=== PATIENT | male | born 1945 | race Caucasian/White ===

== ENCOUNTER → 2019-09-28 15:52 | Outpatient (CLI) | payer MEDICARE, OTHER, SELFPAY ==
[2019-09-28 17:19] LABS: Add Manual Diff / Slide Review NO; Basophils Absolute Auto 0 /uL (0-100); Basophils Percent Auto 0.2 % (0-2); Eosinophils Absolute Auto 0 /uL (0-450); Eosinophils Percent Auto 0.4 % (2-4); Hematocrit 35.7 % (41-53); Lymphocytes Absolute Auto 1200 /uL (1100-4500); Lymphocytes Percent Auto 12.4 % (25-40); Mean Corpuscular HGB Conc 33.5 % (30-36); Mean Corpuscular Hemoglobin 29.4 PG (26-34); Mean Corpuscular Volume 87.6 fL (80-100); Monocytes Absolute Auto 700 /uL (0-900); Monocytes Percent Auto 6.9 % (3-14); Neutrophils Absolute Auto 7600 /uL (1500-7000); Neutrophils Percent Auto 80.1 % (50-75); Platelet Count 396 X10^3/uL (150-400); Red Blood Cell Count 4.07 X10^6/uL (4.5-5.9); Red Cell Distribution Width 13.3 % (11.6-14.8); White Blood Cell Count 9.5 X10^3/uL (4.5-11.0)
[2019-09-28 18:01] LABS: Alanine Aminotransferase 68 IU/L (<50); Albumin 4.1 g/dL (3.5-5.0); Albumin Globulin Ratio 1.1 (1.0-2.8); Aspartate Aminotransferase 53 IU/L (17-59); BUN Creatinine Ratio 21.2 (6-22); Bilirubin Total 0.4 mg/dL (0.2-1.3); Blood Urea Nitrogen 14 mg/dL (9-20); Calcium 9.1 mg/dL (8.4-10.2); Carbon Dioxide 32 mmol/L (22-32); Chloride 95 mmol/L (98-107); Estimated Glomerular Filt Rate > 60.0 mL/min (>60); Globulin 3.9 g/dL (1.7-4.1); Glucose 179 mg/dL (80-110); HEMOLYSIS < 15 (0-50); Potassium 4.6 mmol/L (3.4-5.1); Sodium 135 mmol/L (137-145)
[2019-09-28 18:09] LABS: Alkaline Phosphatase 1398 U/L (38-126)
[2019-09-30 16:36] LABS: Albumin 2.7 g/dL (2.9-4.4); Alpha-1-Globulin 0.7 g/dL (0.0-0.4); Alpha-2-Globulin 1.3 g/dL (0.4-1.0); Gamma Globulin 0.9 g/dL (0.4-1.8); Immunoglobulin A, Serum 155 mg/dL (61-437); Immunoglobulin G,Serum 830 mg/dL (700-1600); Immunoglobulin M, Serum 120 mg/dL (15-143); Protein, Total 6.7 g/dL (6.0-8.5)
== END ==
PROVIDERS: PCP Family Medicine; Referring Provider Internal Medicine Hematology & Oncology; Visit Provider Internal Medicine Hematology & Oncology
DX: C79.51 Secondary malignant neoplasm of bone (principal)
CPT/HCPCS: 36415; 80053; 82784; 84155; 84165; 85025; 86334

== ENCOUNTER → 2019-11-09 10:00 | Outpatient (CLI) | payer MEDICARE, OTHER, SELFPAY ==
--- NOTE | 2019-11-09 10:02 | DI.NM.S_ITS ---
PROCEDURE: NM BONE SCAN WHOLE BODY RADIOPHARMACEUTICAL: 21.9 mCi Tc-99m MDP IV. INDICATIONS: metastat cancer to bone TECHNIQUE: Delayed whole-body scintigrams were obtained approximately 3-4 hours after intravenous injection of radiotracer. Anterior and posterior views were acquired from vertex to feet. COMPARISON: Outside Facility, RG, MRI L-SPINE W/O CONTRAST, 09/21/2019, 15:29. Outside Facility, RG, MRI HIP UNILATERAL WO CONTRAST, 09/21/2019, 16:30. [facility], CT, CT CHEST ABD PEL WO CON, 09/28/2019, 16:40. FINDINGS: As was seen on prior MR scanning from 09/21/[address] scanning from 09/28/19 extensive osseous metastatic disease is present. There is heterogeneous increased uptake in the axial and appendicular skeleton, with isotope deposition greater on the left than the right at the femur. This pattern also was seen on prior MR scanning that included the hips bilaterally. The isotope uptake is prominent, to the degree that residual isotope for excretion through the urinary tract is not present. IMPRESSION: Extensive osseous metastatic disease, through the axial and appendicular skeleton, with asymmetric greater involvement over the left femur when compared to that on the right. As discussed, isotope uptake through the metastatic disease involvement is prominent to the degree that no residual isotope is excreted through the urinary tract. Dictated by: Epifanio Strange M.D. on 11/09/2019 at 15:59 Approved by: Epifanio Strange M.D. on 11/09/2019 at 16:02
== END ==
PROVIDERS: PCP Family Medicine; Referring Provider Family Medicine; Visit Provider Internal Medicine Hematology & Oncology
DX: C61 Malignant neoplasm of prostate (principal); C79.51 Secondary malignant neoplasm of bone
CPT/HCPCS: 78306; A9503

== ENCOUNTER → 2019-12-07 13:01 | Outpatient (CLI) | payer MEDICARE, OTHER, SELFPAY ==
[2019-12-07 13:51] LABS: Add Manual Diff / Slide Review NO; Basophils Absolute Auto 0 /uL (0-100); Basophils Percent Auto 0.4 % (0-2); Eosinophils Absolute Auto 0 /uL (0-450); Hematocrit 36.2 % (41-53); Hemoglobin 12.2 g/dL (13.5-17.5); Lymphocytes Absolute Auto 600 /uL (1100-4500); Lymphocytes Percent Auto 8.1 % (25-40); Mean Corpuscular HGB Conc 33.6 % (30-36); Mean Corpuscular Volume 89.3 fL (80-100); Monocytes Absolute Auto 300 /uL (0-900); Monocytes Percent Auto 4.3 % (3-14); Neutrophils Absolute Auto 6500 /uL (1500-7000); Neutrophils Percent Auto 87.2 % (50-75); Platelet Count 228 X10^3/uL (150-400); Red Blood Cell Count 4.05 X10^6/uL (4.5-5.9); Red Cell Distribution Width 20.6 % (11.6-14.8); White Blood Cell Count 7.5 X10^3/uL (4.5-11.0)
[2019-12-07 14:07] LABS: Anisocytosis 2+
[2019-12-07 14:10] LABS: Alanine Aminotransferase 39 IU/L (<50); Albumin 4.4 g/dL (3.5-5.0); Albumin Globulin Ratio 1.6 (1.0-2.8); Alkaline Phosphatase 1165 U/L (38-126); Aspartate Aminotransferase 29 IU/L (17-59); BUN Creatinine Ratio 37.3 (6-22); Bilirubin Total 0.3 mg/dL (0.2-1.3); Blood Urea Nitrogen 22 mg/dL (9-20); Calcium 8.7 mg/dL (8.4-10.2); Carbon Dioxide 26 mmol/L (22-32); Chloride 104 mmol/L (98-107); Estimated Glomerular Filt Rate > 60.0 mL/min (>60); Globulin 2.8 g/dL (1.7-4.1); Glucose 108 mg/dL (80-110); HEMOLYSIS < 15 (0-50); Potassium 4.1 mmol/L (3.4-5.1); Sodium 137 mmol/L (137-145); Total Protein 7.2 g/dL (6.3-8.2)
[2019-12-07 14:40] LABS: Prostate Specific Antigen 3.71 ng/mL (0.10-4.00)
[2019-12-07 14:44] LABS: Testosterone < 4.90 ng/dL (71.8-623)
[2019-12-07 14:47] LABS: Erythrocyte Sedimentation Rate 18 MM/HR (0-15)
[2019-12-07 15:54] LABS: High Sensitivity CRP - Cardiac 0.5 mg/L (1.0-3.0)
[2019-12-07 16:05] LABS: Vitamin D 25 Hydroxy (D3) 58.3 ng/mL (30.0-100.0)
[2019-12-08 08:11] LABS: Ceruloplasmin 21.2 mg/dL (16.0-31.0)
[2019-12-08 19:19] LABS: Zinc 62 ug/dL (56-134)
== END ==
PROVIDERS: PCP Family Medicine; Visit Provider Internal Medicine Hematology & Oncology
DX: C61 Malignant neoplasm of prostate (principal); C79.51 Secondary malignant neoplasm of bone
CPT/HCPCS: 36415; 80053; 82306; 82390; 82525; 84153; 84403; 84630; 85025; 85651; 86140

== ENCOUNTER → 2020-01-18 15:54 | Outpatient (CLI) | payer MEDICARE, OTHER, SELFPAY ==
[2020-01-18 17:07] LABS: Add Manual Diff / Slide Review NO; Basophils Absolute Auto 0 /uL (0-100); Basophils Percent Auto 0.2 % (0-2); Eosinophils Absolute Auto 0 /uL (0-450); Eosinophils Percent Auto 0.1 % (2-4); Hematocrit 39.8 % (41-53); Hemoglobin 13.2 g/dL (13.5-17.5); Lymphocytes Absolute Auto 1700 /uL (1100-4500); Lymphocytes Percent Auto 16.9 % (25-40); Mean Corpuscular HGB Conc 33.3 % (30-36); Mean Corpuscular Hemoglobin 29.3 PG (26-34); Mean Corpuscular Volume 87.9 fL (80-100); Monocytes Absolute Auto 600 /uL (0-900); Monocytes Percent Auto 5.8 % (3-14); Neutrophils Absolute Auto 7900 /uL (1500-7000); Platelet Count 228 X10^3/uL (150-400); Red Blood Cell Count 4.52 X10^6/uL (4.5-5.9); Red Cell Distribution Width 17.6 % (11.6-14.8); White Blood Cell Count 10.3 X10^3/uL (4.5-11.0)
[2020-01-18 19:45] LABS: Alanine Aminotransferase 32 IU/L (<50); Albumin 4.2 g/dL (3.5-5.0); Albumin Globulin Ratio 1.8 (1.0-2.8); Alkaline Phosphatase 250 U/L (38-126); Aspartate Aminotransferase 22 IU/L (17-59); BUN Creatinine Ratio 28.8 (6-22); Bilirubin Total 0.3 mg/dL (0.2-1.3); Blood Urea Nitrogen 19 mg/dL (9-20); Calcium 9.3 mg/dL (8.4-10.2); Carbon Dioxide 34 mmol/L (22-32); Chloride 98 mmol/L (98-107); Estimated Glomerular Filt Rate > 60.0 mL/min (>60); Globulin 2.3 g/dL (1.7-4.1); Glucose 118 mg/dL (80-110); HEMOLYSIS < 15 (0-50); Potassium 4.2 mmol/L (3.4-5.1); Sodium 138 mmol/L (137-145); Total Protein 6.5 g/dL (6.3-8.2)
[2020-01-18 20:13] LABS: Prostate Specific Antigen 6.67 ng/mL (0.10-4.00)
[2020-01-18 20:24] LABS: Testosterone < 4.90 ng/dL (71.8-623)
== END ==
PROVIDERS: PCP Family Medicine; Referring Provider Internal Medicine Hematology & Oncology; Visit Provider Internal Medicine Hematology & Oncology
DX: C61 Malignant neoplasm of prostate (principal); C79.51 Secondary malignant neoplasm of bone
CPT/HCPCS: 36415; 80053; 84153; 84403; 85025

== ENCOUNTER → 2020-04-04 08:20 | Outpatient (CLI) | payer MEDICARE, OTHER, SELFPAY ==
[2020-04-04 08:51] LABS: Add Manual Diff / Slide Review NO; Basophils Absolute Auto 0 /uL (0-100); Basophils Percent Auto 0.4 % (0-2); Eosinophils Absolute Auto 0 /uL (0-450); Eosinophils Percent Auto 0.2 % (2-4); Hematocrit 37.3 % (41-53); Hemoglobin 12.4 g/dL (13.5-17.5); Lymphocytes Absolute Auto 400 /uL (1100-4500); Mean Corpuscular HGB Conc 33.1 % (30-36); Mean Corpuscular Hemoglobin 28.3 PG (26-34); Mean Corpuscular Volume 85.4 fL (80-100); Monocytes Absolute Auto 400 /uL (0-900); Monocytes Percent Auto 4.7 % (3-14); Neutrophils Absolute Auto 6900 /uL (1500-7000); Neutrophils Percent Auto 89.7 % (50-75); Platelet Count 262 X10^3/uL (150-400); Red Blood Cell Count 4.37 X10^6/uL (4.5-5.9); Red Cell Distribution Width 16.7 % (11.6-14.8); White Blood Cell Count 7.7 X10^3/uL (4.5-11.0)
[2020-04-04 09:00] LABS: HEMOLYSIS < 15 (0-50)
[2020-04-04 09:06] LABS: Alanine Aminotransferase 34 IU/L (<50); Albumin 4.1 g/dL (3.5-5.0); Albumin Globulin Ratio 1.6 (1.0-2.8); Alkaline Phosphatase 764 U/L (38-126); Aspartate Aminotransferase 27 IU/L (17-59); BUN Creatinine Ratio 19.5 (6-22); Bilirubin Total 0.6 mg/dL (0.2-1.3); Blood Urea Nitrogen 15 mg/dL (9-20); Calcium 9.5 mg/dL (8.4-10.2); Carbon Dioxide 34 mmol/L (22-32); Chloride 101 mmol/L (98-107); Estimated Glomerular Filt Rate > 60.0 mL/min (>60); Globulin 2.6 g/dL (1.7-4.1); Glucose 156 mg/dL (80-110); Potassium 4.4 mmol/L (3.4-5.1); Sodium 140 mmol/L (137-145); Total Protein 6.7 g/dL (6.3-8.2)
[2020-04-04 09:09] LABS: Erythrocyte Sedimentation Rate 61 MM/HR (0-15)
[2020-04-04 09:39] LABS: Testosterone 24.9 ng/dL (71.8-623)
[2020-04-05 20:52] LABS: Zinc 68 ug/dL (56-134)
== END ==
PROVIDERS: PCP Family Medicine; Referring Provider Internal Medicine Hematology & Oncology; Visit Provider Naturopath
DX: C61 Malignant neoplasm of prostate (principal); C79.51 Secondary malignant neoplasm of bone
CPT/HCPCS: 36415; 80053; 82525; 84153; 84403; 84630; 85025; 85651

== ENCOUNTER → 2020-05-15 09:06 | Outpatient (CLI) | payer MEDICARE, OTHER, SELFPAY ==
--- NOTE | 2020-05-15 | DI.CT.S_ITS ---
PROCEDURE: CT CHEST ABD PEL WO CON INDICATIONS: Malignant neoplasm of prostate TECHNIQUE: After the administration of oral contrast, 5 mm thick sections acquired from the lung apices to the symphysis pubis. 5 mm thick coronal and sagittal reformats acquired, with additional 7 mm coronal MIP reformats through the lungs. For radiation dose reduction, the following was used: automated exposure control, adjustment of mA and/or kV according to patient size. COMPARISON: [place], [place], [place] BONE SCAN WHOLE BODY, 11/09/2019, 13:47. [place], [place], [place] BONE SCAN WHOLE BODY, 05/15/2020, 12:19. [facility], CT, CT CHEST ABD PEL WO CON, 09/28/2019, 16:40. FINDINGS: Image quality: Excellent. CHEST: Lungs and pleura: No acute pulmonary opacities. Bilateral subpleural scarring in right middle lobe, lingula, and lower lobes. No pleural effusions or pneumothorax. Central and peripheral airways are patent are normal in caliber. Mediastinum: Heart size is normal. No pericardial effusion. Severe coronary calcification. No mediastinal adenopathy by CT size criteria. Thoracic aorta and central pulmonary arteries are normal in size. Esophagus is normal in caliber. No hiatal hernia. Chest wall: No axillary or supraclavicular adenopathy by size criteria. Thyroid gland is normal. ABDOMEN: Solid organs: Liver is normal in size. Gallbladder is normal. Pancreas is normal in contours. Spleen is normal in size. No adrenal nodules. Both kidneys are normal in size, without hydronephrosis or nephrolithiasis. There is a 3.3 cm cyst in left kidney. Peritoneum and bowel: There is a large amount of stool in colon. Small and large bowel loops are normal in caliber and wall thickness. No free fluid or air. Nodes and vessels: No retroperitoneal or mesenteric adenopathy by size criteria. Aorta and inferior vena cava are normal in size. Moderate atherosclerosis. Miscellaneous: No ventral hernias. PELVIS: Genitourinary: The 1.1 cm left pelvic sidewall lymph node now measures 6 mm which is normal by size criteria. Bladder wall thickness is normal. Miscellaneous: No inguinal adenopathy. There is a fat containing right inguinal hernia. Bones: Extensive mixed blastic and lucent bone lesions consistent with widespread osseous metastasis. No vertebral body compression fractures. IMPRESSION: 1. Extensive mixed blastic and lytic bone lesions consistent with widespread osseous metastases. 2. Resolution of mildly enlarged left pelvic sidewall lymph node. 3. A large amount of stool in colon. 4. Small fat containing right inguinal hernia. Dictated by: Rama Marion M.D. on 05/15/2020 at 14:23 Approved by: Rama Marion M.D. on 05/15/2020 at 18:05
--- NOTE | 2020-05-15 09:12 | DI.NM.S_ITS ---
PROCEDURE: [place] BONE SCAN WHOLE BODY RADIOPHARMACEUTICAL: 21.1 mCi Tc-99m MDP IV. INDICATIONS: prostate cancer TECHNIQUE: Delayed whole-body scintigrams were obtained approximately 3-4 hours after intravenous injection of radiotracer. Anterior and posterior views were acquired from vertex to feet. COMPARISON: [place], [place], [place] BONE SCAN WHOLE BODY, 11/09/2019, 13:47. FINDINGS: There is diffuse skeletal tracer activity essentially involving all bony structures above the knees, with increased uptake involving mid humerus bilaterally. There is decreased uptake seen in both proximal femurs since the prior study. Multifocal calvarial tracer activity is again noted unchanged. Bilateral acetabular tracer activity is decreased since the prior study. Unchanged tracer activity involving the distal left femur. IMPRESSION: Widespread osseous metastatic disease, with more conspicuous or new bilateral mid humeral lesions. Improved appearance and decreased uptake at the bilateral proximal femur since the prior study. There is also decreased tracer uptake at the acetabuli bilaterally. Dictated by: Aaron Iqbal M.D. on 05/15/2020 at 14:28 Approved by: Aaron Iqbal M.D. on 05/15/2020 at 14:33
== END ==
PROVIDERS: PCP Family Medicine; Referring Provider Internal Medicine Hematology & Oncology; Visit Provider Internal Medicine Hematology & Oncology
DX: C61 Malignant neoplasm of prostate (principal); C79.51 Secondary malignant neoplasm of bone; K40.90 Unilateral inguinal hernia, without obstruction or gangrene, not specified as recurrent
CPT/HCPCS: 71250; 74176; 78306; A9503

== ENCOUNTER → 2020-07-25 11:52 | Outpatient (CLI) | payer MEDICARE, OTHER, SELFPAY ==
[2020-07-25 12:26] LABS: Hematocrit 28.4 % (41-53); Mean Corpuscular HGB Conc 32.2 % (30-36); Mean Corpuscular Hemoglobin 27.1 PG (26-34)
[2020-07-25 12:30] LABS: Hemoglobin 9.1 g/dL (13.5-17.5); Mean Corpuscular Volume 84.3 fL (80-100); Platelet Count 143 X10^3/uL (150-400); Red Blood Cell Count 3.36 X10^6/uL (4.5-5.9); White Blood Cell Count 8.7 X10^3/uL (4.5-11.0)
[2020-07-25 12:31] LABS: Add Manual Diff / Slide Review YES
[2020-07-25 12:36] LABS: Alanine Aminotransferase 23 IU/L (<50); Albumin 3.9 g/dL (3.5-5.0); Albumin Globulin Ratio 1.4 (1.0-2.8); Alkaline Phosphatase 724 U/L (38-126); Aspartate Aminotransferase 31 IU/L (17-59); BUN Creatinine Ratio 34.7 (6-22); Bilirubin Total 0.2 mg/dL (0.2-1.3); Blood Urea Nitrogen 17 mg/dL (9-20); Calcium 8.5 mg/dL (8.4-10.2); Carbon Dioxide 32 mmol/L (22-32); Chloride 101 mmol/L (98-107); Estimated Glomerular Filt Rate > 60.0 mL/min (>60); Globulin 2.8 g/dL (1.7-4.1); Glucose 157 mg/dL (80-110); HEMOLYSIS < 15 (0-50); Potassium 4.4 mmol/L (3.4-5.1); Sodium 135 mmol/L (137-145); Total Protein 6.7 g/dL (6.3-8.2)
[2020-07-25 13:12] LABS: Testosterone 5.93 ng/dL (71.8-623)
[2020-07-25 13:17] LABS: Neutrophils Absolute Manual 6438 /uL (3000-5900); Nucleated Red Blood Cells 3 #/Diff; Total Cells Counted 100
[2020-07-25 13:18] LABS: Anisocytosis 3+; Polychromasia 2+
[2020-07-25 13:52] LABS: Prostate Specific Antigen 721 ng/mL (0.10-4.00)
== END ==
PROVIDERS: PCP Family Medicine; Referring Provider Internal Medicine Hematology & Oncology; Visit Provider Internal Medicine Hematology & Oncology
DX: C61 Malignant neoplasm of prostate (principal); C79.51 Secondary malignant neoplasm of bone
CPT/HCPCS: 36415; 80053; 84153; 84403; 85007; 85025

== ENCOUNTER → 2020-08-03 09:20 | Oncology outpatient (ONC) | payer MEDICARE, OTHER, SELFPAY ==
--- NOTE | 2019-09-28 14:28 | ONC.CONS ---
History of Present Illness - Data of Consult Patient: new to practice Consult date: 09/28/19 Requesting Physician: Domenico Roldan MD Primary Care Provider: oDmenico Roldan MD - Consult Narrative Reason for consult: Metastatic Cancer to Bone from Unknown primary Narrative: Seng Becker is a 74 year old male. He was referred by Dr. Domenico Roldan for evaluation of metastatic cancer to the bone from unknown primary. Seng used to be a very active male. He was in [place] June of 2019 when he developed left hip pain. Initially he thought he could overcome by more exercise. He went for physical therapy. However the left hip pain has gotten progressively worse especially in ?wrong position?. The pain can be as severe as 9/10 in severity when it is in a round position. In addition patient has noticed significant muscle wasting of the lower extremities especially the left side compared to the right side. And he gradually was having problems ambulating and had to use crutches all the time. Patient has lost about 18 lb since then. While in [place], patient had a MRI of the lumbar spine and the pelvis on 09/21/2019. The MRI showed diffusely heterogeneous marrow suspicious for diffuse [place] metastatic disease. Other possibilities would include multiple myeloma or myeloproliferative disorders. He presented with some lower back and left sided hip pain. The problem started while he was in [place]. Because of the pain he was debilitated and had to use crutches. He flew back to [facility] and then on September [address] Domenico Roldan who referred the patient to our [facility] for further evaluation. Dr. Domenico Roldan prescribed hydrocodone 5/325 every 4 hours on as-needed basis for pain control. He had headache about one month ago, not recently. He had 'involuntary movement of both arms for twice. He reports no shortness of breath, no cough. He said that his voice has become more raspy. He had mild fever at home, about 101.2. H had cold sweats. He reports no abdominal pain. He reports no nausea and no vomiting. He has left sided flank pain, that comes and goes. Patient reports pain?: Yes Home Medications and Allergies Home Medications Medication Instructions Recorded Confirmed Type Prevnar 13 (PF) 0.5 ml IM X1 #1 ea 12/26/16 09/28/19 Rx Zostavax (PF) 0.5 ml SQ STAT #1 ml 12/26/16 09/28/19 Rx Cannibus 09/28/19 History celecoxib 200 mg PO PRN PRN 09/28/19 09/28/19 History hydrocodone-acetaminophen 1 tab PRN PRN 09/28/19 09/28/19 History polyethylene glycol 3350 [Miralax] 17 g PO DAILY PRN 09/28/19 09/28/19 History Allergies Allergy/AdvReac Type Severity Reaction Status Date / Time Penicillins [PENICILLINS] Allergy Severe ANAPHYLAXIS Unverified 10/29/17 13:08 CONTRAST DYE Allergy Severe HYPOTENSION Uncoded 10/29/17 13:08 Medical History - Medical, Surgical, Family History Medical History: Medical History (Last Updated 09/28/19 @ 15:02 by Lucian Perez MD) Basal cell carcinoma of skin Bradycardia Hyperlipidemia Melanoma Onset Date: ~2011 TIA (transient ischemic attack) Surgical History: Surgical History (Last Updated 09/28/19 @ 15:02 by Lucian Perez MD) History of Achilles tendon repair History of basal cell carcinoma (BCC) excision History of melanoma excision Family History: Family History (Last Updated 09/28/19 @ 15:02 by Lucian Perez MD) Mother Breast cancer Son Melanoma Grandmother Melanoma Daughter Monoallelic mutation of ZEFERINO gene - Social History Smoking Status: Never smoker Substance Use Type: does not use Alcohol Intake: former (social) Review of Systems All systems PM: reviewed and no additional remarkable complaints except as stated Constitutional: normal sleep Exam Vital signs: Last Vital Signs Temp 98.2 F 09/28/19 14:36 Pulse 66 09/28/19 14:36 Resp 18 09/28/19 14:36 BP 148/98 H 09/28/19 14:36 Pulse Ox 98 09/28/19 14:36 Narrative: ECOG 2 Gen: WD, thin, NAD, pleasant and cooperative. In wheelchair. HEENT: NCAT, EOMI, PERRLA, anicteric sclera. Neck: Supple, No palpable thyromegaly or lymphadenopathy. Respiratory: CTAB, no wheezes audible. No JVD Cardiovascular: RRR, S1 and S2 normal, SM 2/6 aortic valve Abdomen: Soft, NTND, BS normal, no palpable organomegaly Musculoskeletal: Tenderness elicited from the right scapular, left scapular, left lower rib, left greater trochanter. Extremities: No LE pitting edema. Bilateral lower extremity muscle wasting noted especially on the left side. Lymphatic: no palpable lymph nodes in the neck, axillae, or groins. Neurological: AOx3, CN II-XII grossly intact. No focal motor or sensory deficit. Psychiatric: Normal affect, appropriate mood, no depression, no anxiety. 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 Assessment: Today, I explained to the patient, his and daughter that based on the clinical presentation, my physical examination and the limited MR without contrast, patient has extensive metastatic bone disease. The primary tumor is unclear at this moment. There are several possibilities including primary bone malignancy, multiple myeloma, or primary malignancy from other organ systems, for example gastrointestinal systems, or genitourinary systems. Patient's daughter was diagnosed with ZEFERINO germ line mutation while the mother was tested negative. Seng could be positive for ZEFERINO germ line mutation that would predispose him to higher risk of malignancy. I talked with him that I will obtain basic laboratory tests first to evaluate. I will also obtain bone scan as well as CTs chest abdomen pelvis. Hopefully the scan will provide information about the best location to proceed with biopsy. Patient and patient's family including his and his daughter voiced understanding. Plan: CBC, CMP, SPEP, IFIX Bone scan CT CAP w/contrast RTC in 2 days.
[2019-09-28 14:36] VITALS: BP 148/98; PULSE 66; RESP 18; TEMP 36.8; O2SAT 98
--- NOTE | 2019-09-28 15:56 | DI.CT.S_ITS ---
PROCEDURE: CT CHEST ABD PEL WO CON INDICATIONS: metastatic cancer to bone TECHNIQUE: After the administration of oral contrast, 5 mm thick sections acquired from the lung apices to the symphysis pubis. 5 mm thick coronal and sagittal reformats acquired, with additional 7 mm coronal MIP reformats through the lungs. For radiation dose reduction, the following was used: automated exposure control, adjustment of mA and/or kV according to patient size. COMPARISON: None. FINDINGS: Image quality: Excellent. CHEST: Lungs and pleura: There are patchy right basilar opacities favored to represent atelectasis. Otherwise no acute pulmonary opacities. No pleural effusions or pneumothorax. Central and peripheral airways are patent are normal in caliber. Mediastinum: Heart size is normal. Scattered atherosclerotic calcifications of the coronary arteries are noted. No pericardial effusion. No mediastinal adenopathy by CT size criteria. Thoracic aorta and central pulmonary arteries are normal in size. Esophagus is normal in caliber. No hiatal hernia. Chest wall: No axillary or supraclavicular adenopathy by size criteria. Thyroid gland is unremarkable. ABDOMEN: Solid organs: Liver is normal in size. Gallbladder is unremarkable in noncontrast appearance. Pancreas is normal in contours. Spleen is normal in size. No adrenal nodules. Both kidneys are normal in size, without hydronephrosis or nephrolithiasis. There is a 3.5 cm partially exophytic left renal cyst. Peritoneum and bowel: Small and large bowel loops are normal in caliber and wall thickness. Normal appendix. No free fluid or air. Nodes and vessels: No retroperitoneal or mesenteric adenopathy by size criteria. Scattered atherosclerotic calcifications of the abdominal aorta and iliac vessels without aneurysmal dilatation. Miscellaneous: No ventral hernias. PELVIS: Genitourinary: Bladder wall thickness is normal. Prominent prostate gland. Miscellaneous: Small fat-containing right inguinal hernia without acute inflammation. There is a prominent left pelvic sidewall lymph node measuring 1.1 cm in short axis dimension. Bones: Innumerable, diffusely scattered sclerotic intraosseous lesions seen throughout the entire visualized axial and appendicular skeleton. No acute vertebral body compression fractures. IMPRESSION: 1. Diffuse, heterogeneous sclerotic intraosseous lesions seen throughout the visualized skeleton compatible with osseous metastases. No acute compression fractures. No evidence for pathologic fractures. 2. Prominent left pelvic sidewall lymph node measuring approximately 1.1 cm in short axis dimension. 3. CT chest, abdomen and pelvis without acute abnormalities. 4. Patchy right basilar opacities favored to represent atelectasis. Dictated by: Rigoberto Byrd M.D. on 09/28/2019 at 17:08 Approved by: Rigoberto Byrd M.D. on 09/28/2019 at 17:23
--- NOTE | 2019-09-29 11:03 | PC.NURSE ---
Spoke with pt's , Brant, earlier this morning. Per Brant, pt is in terrible pain. Pain is so significant pt can't get up off the floor. Brant explains with any type of movement, he just yells out in pain. Brant reports mashing up 2 Hydrocodones in yogurt and administering them to the pt around 5:45 AM. Pt was able to sleep for a few hours, but then woke up with increased pain. Brant reports pt's pain is in his spine, hips,neck and shoulders. She further states he isn't able to take deep breaths because even that causes him significant pain. This data analyst report writer discussed possible pain regimen options with Brant. Discussed medications Morphine, Dilaudid, and Fentanyl; risks and benefits covered. Brant further discussed concerns r/t pt scheduled PET scan there is no way he will be able to tolerate it if it's anything like the CT scan yesterday. Explained PET scan appt details; approx length of time it would take, the position the pt would be in, etc..This data analyst report writer discussed quality if life goals with Brant. According to Brant, He just wants to be comfortable right now. If there was an oral pill he could take that would help his cancer, then we would consider something like that. Verbalized to Brant that this data analyst report writer would reach out to Dr. Perez and inform him of the sudden change in pt's pain intensity since yesterday and overall condition and would call her back to discuss Dr. Perez's instructions. Per Dr. Perez pain control is the priority at this time. and pt should be evaluated in the ER. Called Brant back and informed her of Dr. Perez's recommendations. Brant then explained that since our initial conversation she had made an appt with [facility] and someone would be out at 1pm today to address pt's pain and other concerns. Brant states if his pain isn't better in 24 hours then we will take him to the ER. Brant explains she would like to see how the Hospice appt at 1:00 goes first. Brant expressed her gratitude everyone at the [facility] has been so great, thank you. This data analyst report writer instructed her to call if they needed anything else at all, she agreed.
--- NOTE | 2019-09-29 11:08 | ONC.MSW ---
Description: T/C/Care Coordination Activity: Pt's had emailed this PACKAGE HANDLER inquiring about the status of the bed delivery, stating that pt is on the floor, we can't get him up, in extreme pain. PACKAGE HANDLER notified our triage nurse in order to f/u re: pain and bowel concerns. PACKAGE HANDLER called [facility] to clarify the status of the bed order, was informed that the family had just called, were angry because they couldn't get the bed today, and that pt was being admitted to hospice today. PACKAGE HANDLER called [facility], who is indeed scheduled to admit him today. PACKAGE HANDLER faxed his clinicals as requested, notified online editor that pt is being admitted to hospice.
--- NOTE | 2019-09-30 10:05 | ONC.MSW ---
Description: T/C re: goals of care, decision-making Activity: Called pt's after receiving an email from her requesting that Dr. Perez call the family and go over the CT scan, as well as give them a definitive diagnosis, even though they are now on hospice. Dr. Perez declined the request to call them, and felt that pt's decision to go on hospice was premature, and that he felt this cancer may be highly treatable, if it turns out to be metastatic prostate cancer. He requested this FUEL HANDLER explain this to family, and that he would also provide pain management. Pt's states that pt's pain has improved today, that hospice started him on Methadone, and that they were told that pt can go on and off hospice as many times as he wants, if he wants to pursue oncologic treatment as he improves. She was not happy that they couldn't have the CT gone over by phone, and did not feel confident with the hospice nurse going over it. FUEL HANDLER explained that Dr. Perez would be more than willing to work with them, but they would need to go off of hospice and make an appt. to come in to see him. Family will remain on hospice for the time being. FUEL HANDLER offered support and wished them well.
--- NOTE | 2019-10-07 16:49 | PC.NURSE ---
TELECONFERENCE REQUEST RE BIOPSY RESULTS WITH EXPLANATION, PROGNOSIS AND ANY TREATMENT POSSIBILITIES WAS MADE BY PATIENT'S . SHE WAS TOLD BY HOSPICE THAT THEY WOULD APPROVE SUCH A VISIT. STATES THAT SHE WOULD ALSO PAY OUT OF POCKET IF IT IS NOT COVERED. DR HUMAIRA GUIDRY OF HOSPICE (CELL: [phone]) ALSO LEFT A MESSAGE WITH A REQUEST FOR A TELECONFERENCE WITH SHE AND PATIENT AND . IF THIS WOULD NOT BE POSSIBLE SHE REQUESTS THAT YOU GIVE HER A CALL TO EXPLAIN THE RESULTS SO THAT SHE CAN RELAY THIS TO THE PATIENT AND FAMILY.
--- NOTE | 2019-10-11 10:24 | ONC.MSW ---
T/C re: visit w/Dr. Perez today PUBLIC POLICY ANALYST attempted to call both the home phone and cell phone, left message on 's cell phone to please call PUBLIC POLICY ANALYST re: pt's scheduled visit with Dr. Perez. He will be unable to provide a teleconference at this time.
--- NOTE | 2019-10-11 15:55 | ONC.MSW ---
T/C re: Dr. Perez Consult Visit Activity: Spoke with pt's , Brant. She had left a message earlier that she would like for Dr. Perez to call and work with an integrative oncologist down in [place] re: working together on a treatment plan for pt. Pt is still on Hospice services. TOUR DRIVER explained to Brant that at this time, Dr. Perez is unable to provide for teleconferencing for medical appointments or consultations, and that he would only be willing to work together with Dr. Oglesby in [place] if Seng revoked Hospice and decided to pursue active oncology treatment. Brant insists that [place] travel[place], and that they need a call. TOUR DRIVER again reiterated that Dr. Perez does not practice that way, however this TOUR DRIVER has left a message for the financial services director, Dr. Davis, re: the possibility that she and Dr. Perez can talk again over the phone re: the results of his PSA. Will plan to call Brant again in a few days after Dr. Perez and Dr. Gonzalez talk.
--- NOTE | 2019-10-14 11:26 | ONC.MSW ---
Description: T/C-New Referral Navigation Activity: Recieved message from pt's stating that they are choosing to go off of hospice and restart oncology active treatment. They met with their primary care doctor, Dr. Roldan, who went over the PSA results with them (204), which appears to be indicative of metastatic prostate cancer. They wish to be scheduled as soon as possible. HR SYSTEMS ANALYST called and left a message with Dr. Roldan's clinic, requesting the urgent referral and PSA lab results. Will plan to schedule pt once we have these.
--- NOTE | 2019-10-19 09:46 | P.PNONC_ITS ---
PN -Subjective Interval history: ID/CC: 74-year-old gentleman advanced prostate cancer with extensive bone metastasis. HPI: Seng Becker is a 74 year old male. He was referred by Dr. Domenico Roldan for evaluation of metastatic cancer to the bone of unknown primary. Seng used to be a very active man. He was in [place] in June of 2019 when he developed left hip pain. Initially he thought he could overcome by more exercise. He went for physical therapy. However the left hip pain has gotten progressively worse especially in ?wrong position?. The pain can be as severe as 9/10 in severity when it is in the wrong position. In addition patient has noticed significant muscle wasting of the lower extremities especially the left side compared to the right side. He gradually was having problems ambulating and had to use crutches all the time. Patient has lost about 18 lb since then. While in [place], patient had a MRI of the lumbar spine and the pelvis on 09/21/2019. The MRI showed diffusely heterogeneous marrow suspicious for diffuse osseous metastatic disease. Other possibilities would include multiple myeloma or myeloproliferative disorders. He flew back to [facility] and on September 23, [address] Domenico Roldan who referred the patient to our [facility] for further evaluation. Dr. Domenico Roldan prescribed hydrocodone 5/325 every 4 hours on as-needed basis for pain control. He had headache about in 08/2019. He had 'involuntary movement of both arms for twice. He reports no shortness of breath, no cough. He said that his voice has become more raspy. He had mild fever at home, about 101.2. H had cold sweats. He reports no abdominal pain. He reports no nausea and no vomiting. He has left sided flank pain, that comes and goes. Interval History: Since his previous visit, on 09/28/2019, patient underwent CT chest abdomen and pelvis. The scan showed diffuse, heterogeneous sclerotic intra-osseous lesions throughout the visualized skeleton compatible with osseous metastasis. No acute compression fractures were noted. No evidence of pathological fractures. It also showed prominent left pelvic side wall lymph node measuring approximately 1.1 cm in short axis dimension. On 09/29/2019, he developed extreme pain and had to lie down on mattress on floor and was not able to get up. He chose no further investigation or treatment. He then decided to get into hospice care ([facility] For pain control, he was started on methadone. After CT scan of 19/05/2020 became available, I called and discussed with Kelley Rubin about check serum PSA level. On 10/11/2019, patient underwent laboratory test that showed PSA 203.97 ng/ml. On 10/12/2019, patient was evaluated by Dr. Roldan for pain management. Patient has chose to revoke hospice care. Currently patient is taking methadone every 12 hours, hydrocodone for breakthrough pain together with dexamethasone. Patient said that this regimen works well for the pain. Patient also was evaluated by [facility]. They have received lots of information as far as prostate cancer treatment is concerned. They presented here today the patient and his for discussion of the diagnosis and further management options. - Additional ROS All systems PM: reviewed and no additional remarkable complaints except as stated (Those mentioned in HPI and Interval History) Home Medications and Allergies Home Medications Medication Instructions Recorded Confirmed Type Prevnar 13 (PF) 0.5 ml IM X1 #1 ea 12/26/16 09/28/19 Rx Zostavax (PF) 0.5 ml SQ STAT #1 ml 12/26/16 09/28/19 Rx Cannibus 09/28/19 History hydrocodone-acetaminophen 1 tab PRN PRN 09/28/19 09/28/19 History polyethylene glycol 3350 [Miralax] 17 g PO DAILY PRN 09/28/19 09/28/19 History ascorbic acid (vitamin C) [Vitamin 7,000 mg PO DAILY 10/19/19 10/19/19 History C] bicalutamide [Casodex] 50 mg PO DAILY #30 tab 10/19/19 Rx dexamethasone 4 mg PO DAILY 10/19/19 10/19/19 History magnesium oxide 400 mg PO DAILY 10/19/19 10/19/19 History methadone 5 mg PO Q6H 10/19/19 10/19/19 History Allergies Allergy/AdvReac Type Severity Reaction Status Date / Time Penicillins [PENICILLINS] Allergy Severe ANAPHYLAXIS Unverified 10/29/17 13:08 CONTRAST DYE Allergy Severe HYPOTENSION Uncoded 10/29/17 13:08 Exam Vital signs: 10/19/19 10:55 Last Vital Signs Temp 99.0 F 10/19/19 10:21 Pulse 74 10/19/19 10:21 Resp 16 10/19/19 10:21 BP 151/107 H 10/19/19 10:21 Pulse Ox 96 10/19/19 10:21 Narrative: ECOG 1 Gen: WD, thin, NAD, pleasant and cooperative. Not in wheelchair. He is using walker today. HEENT: NCAT, EOMI, PERRLA, anicteric sclera. Neck: Supple, No palpable thyromegaly or lymphadenopathy. Respiratory: CTAB, no wheezes audible. No JVD Cardiovascular: RRR, S1 and S2 normal, SM 2/6 aortic valve Abdomen: Soft, NTND, BS normal, no palpable organomegaly Musculoskeletal: Tenderness elicited from the right scapular, left scapular, left lower rib, left greater trochanter. Extremities: No LE pitting edema. Bilateral lower extremity muscle wasting noted especially on the left side. Lymphatic: no palpable lymph nodes in the neck, axillae, or groins. Neurological: AOx3, CN II-XII grossly intact. No focal motor or sensory deficit. Psychiatric: Normal affect, appropriate mood, no depression, no anxiety. Results - Labs Reviewed. The PSA was 203.97. Assessment and Plan (1) Metastatic cancer to bone Overview: Seng is a 74 year old male with newly diagnosed advanced prostate cancer with extensive bone metastasis on 10/12/2019. He initially presented with rapidly progressive worsening whole body bone pain, weight loss and lower extremity muscle waiting in Jun 2019. CT CAP scan on 09/28/2019 showed extensive sclerotic bone lesio affecting all bones visible, as well as one left pelvic lymph node. PSA on 10/11/2019 was found to be 203.97 ng/ml. 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 Assessment: I explained to the patient that with some the significant elevated serum PSA level and the CT scan results of sclerotic multiple bone lesions, I think we can make the diagnosis of prostate cancer without resorting to biopsy. Talked with him and his in the presence of our social studies department chair Nimisha about the options for newly diagnosed metastatic prostate adenocarcinoma. First of I talked with them that the main treatment is androgen deprivation therapy. We usually use LHRH agonist Lupron to achieve androgen deprivation. The Lupron usually is given once every 3 months. To prevent the known PSA flare with initial use of Lupron, usually will prescribe casodex 50 mg once a day for the initial 1 month. Next I talked with them that I would recommend chemotherapy with docetaxel. I emphasized that it is a limited course of treatment for 6 cycles. And the clinical trial has shown overall survival compared to patients who has not had chemotherapy (HR 0.72, mOS 57.6 vs 47.2). Third, I talked with the patient that given the extensive bone metastasis, I also will recommend medications with denosumab injection once a month. However, currently COVID-19 pandemic is expected to peak within the next couple of week. Non essential surgery has been postponed. I am afraid that for chemotherapy, he may not be able to get the port placement. In addition chemotherapy requires frequent clinic and or hospital visits, that increases the risk of exposure to COVID-19. Because of this current situation, I recommend that we first start androgen deprivation therapy with Lupron. When the COVID-19 subsides, we will initiate treatment with docetaxel. As far as bone medication denosumab is concerned, I talked with them that it is associated with a rare complications of osteonecrosis of the jaw. Therefore, dental clearance is usually required. At present, due to COVID-19 pandemic, all the dental office has been closed. Therefore, I would recommend that we also delay the initiation of denosumab for now. Patient and patient's both voiced understanding. Plan: Casodex 50 mg daily x 30#, start today Lupron 22.5 mg im every 12 week, starting in one week RTC in 2 months, CBC, CMP, PSA, T (2) Pain due to malignant neoplasm metastatic to bone Overview: Patient has had extreme whole-body bone pain due to metastatic prostate cancer. Assessment: Patient currently is using methadone, hydrocodone, and dexamethasone for the pain control. He has been managed by Samantha Huerta Plan: Continue follow up with Samantha Huerta
[2019-10-19 10:21] VITALS: BP 151/107; PULSE 74; RESP 16; TEMP 37.2; O2SAT 96
--- NOTE | 2019-10-19 10:57 | ONC.MSW ---
Description: New Pt F/F Visit- joint visit with Dr. Perez. Activity: Met with pt and spouse, as well as Dr. Perez for re-establishment of Oncology active treatment/care. Pt is choosing to revoke hospice services at this time, his PSA labs showed his PSA at 203, which was a diagnostic indicator for metastatic prostate cancer. Dr. Perez explained to pt/ that pt literally has bone mets in every bone in his body from the neck down, however no mets to other organs at this time. Pt shared that he's feeling significantly better since being on hospice and beginning the methadone/dexamethasone pain regimen. They [place] will plan to continue pt's pain management needs. Plan is for pt to begin lupron and casodex, followed by starting docetaxel in approx. 6-weeks. Dr. Perez is choosing to postpone the docetaxel at this time due to the Covid-19 outbreak, and pt's travel requires ferry travel to the hospital-something we and the family want to avoid as long as possible. No further psychosocial needs are identified at this time. Plan: Will continue to monitor ongoing assistance and support needs.
--- NOTE | 2019-10-19 11:02 | ONC.SCHED ---
Patsy [id number]: codecorrect nati w/ DX C61.
[2019-10-26 13:16] VITALS: BP 152/80; PULSE 79; RESP 18; TEMP 36.7; O2SAT 96
[2019-10-26] MEDS: LEUPROLIDE DEPOT [ELIGARD] 22.5 MG SYR SUBCUT (13:44)
--- NOTE | 2019-10-26 13:59 | PC.NURSE ---
Pt was given written information r/t silvia as well as teaching on when to seek emergent medical care. Pt and verbalized understanding.
--- NOTE | 2019-11-02 14:57 | PC.NURSE ---
SIDE EFFECTS OF LUPRON ON THIS PATIENT WERE WRITTEN IN AN EMAIL ADDRESSED TO RETAIL CUSTOMER SERVICE REPRESENTATIVE BY HIS . [facility] EXPERIENCING: UNUSUAL HOARSENESS, TROUBLE SWALLOWING OCCASIONALLY, INCREASED THIRST AND APPETITE, INCREASED FREQUENCY OF URINATION, DRY MOUTH, WORSE BONE AND BACK PAIN, SHAKING HANDS AND RESTLESSNESS, EMOTIONAL UPS AND DOWNS. THIS NURSE CALLED PATIENT WHO STATED HE WAS DOING GOOD. HE STATED THAT THE HOARSENESS HAS BEEN PRESENT EVEN BEFORE LUPRON AND THAT HE IS NOT HAVING MUCH TROUBLE WITH SWALLOWING, NO CHOKING. HE WAS REASSURED THAT THE OTHER SYMPTOMS WERE KNOWN SIDE EFFECTS. HE IS LOOKING INTO GETTING [place] BONE DENSITY [place]AN [place] AND OTHERWISE WILL CALL BACK TO REQUEST. FU IS IN ONE MONTH.
--- NOTE | 2019-11-15 10:07 | ONC.MSW ---
Description: Bone Scan Results T/C Activity: Pt's called and requested that the bone scan results be faxed to osvaldo Huerta, as he will be meeting with pt/family later this afternoon to review treatment status and goals of continuing care. Faxed as requested.
--- NOTE | 2019-12-06 14:21 | ONC.MSW ---
Description: Lab Add-On's Activity: RETAIL EQUIPMENT ASSOCIATE took care of making sure that the labs being ordered by Dr. Yun, pt's Integr[facility], are scanned in by central registration for his lab draw tomorrow.
[2019-12-07 14:35] VITALS: BP 130/77; PULSE 70; RESP 18; TEMP 36.4; O2SAT 97
--- NOTE | 2019-12-07 14:36 | P.PNONC_ITS ---
PN -Subjective Interval history: ID/CC: 74-year-old gentleman advanced prostate cancer with extensive bone metastasis. HPI: Seng Becker is a 74 year old male. He was referred by Dr. Domenico Roldan for evaluation of metastatic cancer to the bone of unknown primary. Seng used to be a very active man. He was in [place] in June of 2019 when he developed left hip pain. Initially he thought he could overcome by more exercise. He went for physical therapy. However the left hip pain has gotten progressively worse especially in ?wrong position?. The pain can be as severe as 9/10 in severity when it is in the wrong position. In addition patient has noticed significant muscle wasting of the lower extremities especially the left side compared to the right side. He gradually was having problems ambulating and had to use crutches all the time. Patient has lost about 18 lb since then. While in [place], patient had a MRI of the lumbar spine and the pelvis on 09/21/2019. The MRI showed diffusely heterogeneous marrow suspicious for diffuse osseous metastatic disease. Other possibilities would include multiple myeloma or myeloproliferative disorders. He flew back to [facility] and on September 23, [address] Domenico Roldan who referred the patient to our [facility] for further evaluation. Dr. Domenico Roldan prescribed hydrocodone 5/325 every 4 hours on as-needed basis for pain control. On 09/28/2019, patient underwent CT chest abdomen and pelvis. The scan showed diffuse, heterogeneous sclerotic intra-osseous lesions throughout the visualized skeleton compatible with osseous metastasis. No acute compression fractures were noted. No evidence of pathological fractures. It also showed prominent left pelvic side wall lymph node measuring approximately 1.1 cm in short axis dimension. On 09/29/2019, he developed extreme pain and had to lie down on mattress on floor and was not able to get up. He chose no further investigation or treatment. He then decided to get into hospice care ([facility] For pain control, he was started on methadone. After CT scan of 19/05/2020 became available, I called and discussed with Kelley Rubin about check serum PSA level. On 10/11/2019, patient underwent laboratory test that showed PSA 203.97 ng/ml. On 10/12/2019, patient was evaluated by Dr. Roldan for pain management. Patient has chose to revoke hospice care. At the time, he was taking methadone every 12 hours, hydrocodone for breakthrough pain together with dexamethasone. Patient said that this regimen works well for the pain. Patient also was evaluated by [facility]. They have received lots of information as far as prostate cancer treatment is concerned. Interval History: During his previous visit with me, we discussed about the diagnosis of castration sensitive metastatic prostate adeno carcinoma. Patient has elevated PSA level with CT evidence extensive bone metastasis. He was started on Casodex 50 mg once a day for 30 days and on 10/26/2019 patient was started on Lupron injection 22.5 mg im. After the lupron, more tired. He is no where as good as before. He has pain flair up in the ankles, knees, hips, and shoulders. He is taking dexamethasone in the morning, and methadone every 6 hours. At the clinic, his pain was 1/10 as he is not walking. - Patient Self-Reported Symptoms SR Constitution: Weight loss/gain SR ears, nose, mouth, throat issues: Hoarseness SR Genitourinary issues: Frequent urination SR Musculoskeletal issues: Joint pain or swelling, Muscle weakness, Back or neck pain, Bone pain SR Neuro issues: Numbness or tingling SR Endocrine issues: Excessive thirst - Additional ROS All systems PM: reviewed and no additional remarkable complaints except as stated Home Medications and Allergies Home Medications Medication Instructions Recorded Confirmed Type Prevnar 13 (PF) 0.5 ml IM X1 #1 ea 12/26/16 12/07/19 Rx Zostavax (PF) 0.5 ml SQ STAT #1 ml 12/26/16 12/07/19 Rx Cannibus 09/28/19 History hydrocodone-acetaminophen 1 tab PRN PRN 09/28/19 12/07/19 History polyethylene glycol 3350 [Miralax] 17 g PO DAILY PRN 09/28/19 12/07/19 History ascorbic acid (vitamin C) [Vitamin 7,000 mg PO DAILY 10/19/19 12/07/19 History C] dexamethasone 4 mg PO DAILY 10/19/19 12/07/19 History magnesium oxide 400 mg PO DAILY 10/19/19 12/07/19 History methadone 5 mg PO Q6H 10/19/19 12/07/19 History Curapro 750 mg DAILY 12/07/19 12/07/19 History Vitamin D3 4,000 units DAILY 12/07/19 12/07/19 History calcium-vits X3-W-C2-minerals 2 tab PO BID 12/07/19 12/07/19 History [Bone Essentials] Allergies Allergy/AdvReac Type Severity Reaction Status Date / Time Penicillins [PENICILLINS] Allergy Severe ANAPHYLAXIS Unverified 10/29/17 13:08 CONTRAST DYE Allergy Severe HYPOTENSION Uncoded 10/29/17 13:08 Exam Vital signs: 12/07/19 23:24 Last Vital Signs Temp 97.5 F L 12/07/19 14:35 Pulse 70 12/07/19 14:35 Resp 18 12/07/19 14:35 BP 130/77 12/07/19 14:35 Pulse Ox 97 12/07/19 14:35 Narrative: ECOG 1 Gen: WD, thin, NAD, pleasant and cooperative. Not in wheelchair. He is using walker today. HEENT: NCAT, EOMI, PERRLA, anicteric sclera. Neck: Supple, No palpable thyromegaly or lymphadenopathy. Respiratory: CTAB, no wheezes audible. No JVD Cardiovascular: RRR, S1 and S2 normal, SM 2/6 aortic valve Abdomen: Soft, NTND, BS normal, no palpable organomegaly Musculoskeletal: Tenderness elicited from the right scapular, left scapular, left lower rib, left greater trochanter. Extremities: No LE pitting edema. Bilateral lower extremity muscle wasting noted especially on the left side. Lymphatic: no palpable lymph nodes in the neck, axillae, or groins. Neurological: AOx3, CN II-XII grossly intact. No focal motor or sensory deficit. Psychiatric: Normal affect, appropriate mood, no depression, no anxiety. Results - Labs Laboratory Last Values Prostate Specific Ag 3.71 ng/mL (0.10-4.00) 12/07/19 15:50 Assessment and Plan (1) Metastatic cancer to bone Overview: Seng is a 74 year old male with newly diagnosed advanced prostate cancer with extensive bone metastasis on 10/12/2019. He initially presented with rapidly progressive worsening whole body bone pain, weight loss and lower extremity muscle wasting in Jun 2019. CT CAP scan on 09/28/2019 showed extensive sclerotic bone lesion affecting all bones visible, as well as one left pelvic lymph node. PSA on 10/11/2019 was found to be 203.97 ng/ml. 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 Assessment: First of all, patient and patient's showed me a new FDA approval of rucaparib in patients with prostate cancer and ZEFERINO mutation. Patient said that even though he has not been tested for ZEFERINO mutation, by family history he must be positive. He said his daughter has been tested and was found to be ZEFERINO positive. His has been tested and was negative. Therefore he must be positive. I told them that I completely agree with his thought and I would recommend moving forward with the genetic testing to show that he is indeed ZEFERINO positive. If that is the case I would agree with proceeding with authorization of the new medication rucaparib. They both voiced understanding. Today, I also talked with the patient about urology consult. Dr. Machuca will be seeing patients in December 2019 at our clinic. Since patient has diagnosis of prostate cancer, patient will need to establish service with urology. Today, I once again talked with him about bone targeting agent Xgeva. He said he has dental appointment tomorrow. I told him that dental clearance is needed for initiating of treatment with Xgeva Plan: Continue Lupron 22.5 mg im every 12 week, next injection 01/2020 [facility] Hereditary testing Referral to urology Dental clearance for Xgeva injection RTC in 3-4 weeks for follow up, CBC, CMP, PSA, T (2) Pain due to malignant neoplasm metastatic to bone Overview: Patient has had extreme whole-body bone pain due to metastatic prostate cancer. Assessment: Patient currently is using methadone, hydrocodone, and dexamethasone for the pain control. He has been managed by Samantha Huerta Plan: Continue follow up with Samantha Huerta
--- NOTE | 2019-12-07 16:11 | PC.NURSE ---
Cruz blood draw on patient done today at 1550.
--- NOTE | 2019-12-07 16:20 | PC.NURSE ---
MYRIAD MY RISK ORDERED BY DR SEVERINO. BLOOD DRAWN AND PACKED WITH SIGNED REQUISITION. PACKED KIT WILL BE BROUGHT TO LAB TO HOLD AND THEN SEND WITH FED EX SHIPMENT TOMORROW. NADIR LILD INFORMED TO WATCH FOR RESULTS NO COPY WAS MADE OF REQUISITION.
[2019-12-07 16:56] LABS: Prostate Specific Antigen 3.71 ng/mL (0.10-4.00)
--- NOTE | 2019-12-30 08:21 | ONC.PN ---
PN -Subjective Interval history: ID/CC: 74-year-old gentleman advanced prostate cancer with extensive bone metastasis. HPI: Seng Becker is a 74 year old male. He was referred by Dr. Domenico Roldan for evaluation of metastatic cancer to the bone of unknown primary. Seng used to be a very active man. He was in [place] in June of 2019 when he developed left hip pain. Initially he thought he could overcome by more exercise. He went for physical therapy. However the left hip pain has gotten progressively worse especially in ?wrong position?. The pain can be as severe as 9/10 in severity when it is in the wrong position. In addition patient has noticed significant muscle wasting of the lower extremities especially the left side compared to the right side. He gradually was having problems ambulating and had to use crutches all the time. Patient has lost about 18 lb since then. While in [place], patient had a MRI of the lumbar spine and the pelvis on 09/21/2019. The MRI showed diffusely heterogeneous marrow suspicious for diffuse osseous metastatic disease. Other possibilities would include multiple myeloma or myeloproliferative disorders. He flew back to [facility] and on September 23, [address] Domenico Roldan who referred the patient to our [facility] for further evaluation. Dr. Domenico Roldan prescribed hydrocodone 5/325 every 4 hours on as-needed basis for pain control. On 09/28/2019, patient underwent CT chest abdomen and pelvis. The scan showed diffuse, heterogeneous sclerotic intra-osseous lesions throughout the visualized skeleton compatible with osseous metastasis. No acute compression fractures were noted. No evidence of pathological fractures. It also showed prominent left pelvic side wall lymph node measuring approximately 1.1 cm in short axis dimension. On 09/29/2019, he developed extreme pain and had to lie down on mattress on floor and was not able to get up. He chose no further investigation or treatment. He then decided to get into hospice care ([facility] For pain control, he was started on methadone. After CT scan of 19/05/2020 became available, I called and discussed with Kelley Rubin about check serum PSA level. On 10/11/2019, patient underwent laboratory test that showed PSA 203.97 ng/ml. On 10/12/2019, patient was evaluated by Dr. Roldan for pain management. Patient has chose to revoke hospice care. At the time, he was taking methadone every 12 hours, hydrocodone for breakthrough pain together with dexamethasone. Patient said that this regimen works well for the pain. Patient also was evaluated by [facility]. They have received lots of information as far as prostate cancer treatment is concerned. He was started on Casodex 50 mg once a day for 30 days and on 10/26/2019 patient was started on Lupron injection 22.5 mg im. Interval History: Since his previous visit, patient was evaluated on 12/29/[address] Rios which agreed with the androgen deprivation therapy and hopefully rucaparib if the genetic testing for ZEFERINO positive. In addition, Dr. Machuca also discussed with the patient about possible radium 2-3 given the extensive bone metastasis without visceral metastasis. Clinically, Patient is complaining bilateral hip pain. Patient said that when he sits still, he does not have any significant pain. However as soon as he gets up and walks around, patient would experience significant severe pain. He said that pain on the left side is more severer than on the right side. Patient denies any fever or chills. He denies any nausea or vomiting. He denies shortness of breath or chest pain. He is having hot flashes but he said he is able to manage and tolerate. Treatment summary Lupron 22.5 mg im q3m, 10/26/2019 - Casodex 50 mg daily x 30 days, 10/26/2019 - Patient Self-Reported Symptoms SR Constitution: Chills, Weight loss/gain SR ears, nose, mouth, throat issues: Hoarseness SR respiratory issues: Shortness of breath SR Skin issues: Skin rash or itching SR Genitourinary issues: Frequent urination SR Musculoskeletal issues: Muscle weakness, Difficulty walking, Bone pain SR Neuro issues: Numbness or tingling SR Endocrine issues: Excessive thirst, Hot flashes - Additional ROS All systems PM: reviewed and no additional remarkable complaints except as stated Home Medications and Allergies Home Medications Medication Instructions Recorded Confirmed Type Prevnar 13 (PF) 0.5 ml IM X1 #1 ea 12/26/16 12/07/19 Rx Zostavax (PF) 0.5 ml SQ STAT #1 ml 12/26/16 12/07/19 Rx Cannibus 09/28/19 History hydrocodone-acetaminophen 1 tab PRN PRN 09/28/19 12/07/19 History polyethylene glycol 3350 [Miralax] 17 g PO DAILY PRN 09/28/19 12/07/19 History ascorbic acid (vitamin C) [Vitamin 7,000 mg PO DAILY 10/19/19 12/07/19 History C] dexamethasone 4 mg PO DAILY 10/19/19 12/07/19 History magnesium oxide 400 mg PO DAILY 10/19/19 12/07/19 History methadone 5 mg PO Q6H 10/19/19 12/07/19 History Curapro 750 mg DAILY 12/07/19 12/07/19 History Vitamin D3 4,000 units DAILY 12/07/19 12/07/19 History calcium-vits X7-Q-P4-minerals 2 tab PO BID 12/07/19 12/07/19 History [Bone Essentials] Allergies Allergy/AdvReac Type Severity Reaction Status Date / Time Penicillins [PENICILLINS] Allergy Severe ANAPHYLAXIS Unverified 10/29/17 13:08 CONTRAST DYE Allergy Severe HYPOTENSION Uncoded 10/29/17 13:08 Exam Vital signs: 12/30/19 18:25 Last Vital Signs Temp 97.5 F L 12/07/19 14:35 Pulse 67 12/30/19 08:39 Resp 16 12/30/19 08:39 BP 171/89 H 12/30/19 08:39 Pulse Ox 97 12/30/19 08:39 Narrative: ECOG 1 Gen: WD, thin, NAD, pleasant and cooperative. Not in wheelchair. He is using walker today. HEENT: NCAT, EOMI, PERRLA, anicteric sclera. Neck: Supple, No palpable thyromegaly or lymphadenopathy. Respiratory: CTAB, no wheezes audible. No JVD Cardiovascular: RRR, S1 and S2 normal, SM 2/6 aortic valve Abdomen: Soft, NTND, BS normal, no palpable organomegaly Musculoskeletal: Tenderness elicited from the right scapular, left scapular, left lower rib, left greater trochanter. Extremities: No LE pitting edema. Bilateral lower extremity muscle wasting noted especially on the left side. Lymphatic: no palpable lymph nodes in the neck, axillae, or groins. Neurological: AOx3, CN II-XII grossly intact. No focal motor or sensory deficit. Psychiatric: Normal affect, appropriate mood, no depression, no anxiety. Results - Labs Laboratory Last Values Prostate Specific Ag 3.71 ng/mL (0.10-4.00) 12/07/19 15:50 Assessment and Plan (1) Metastatic cancer to bone Overview: Seng is a 74 year old male with advanced prostate cancer with extensive bone metastasis diagnosed on 10/12/2019. He initially presented with rapidly progressive worsening whole body bone pain, weight loss and lower extremity muscle wasting in 06/2019. CT CAP scan on 09/28/2019 showed extensive sclerotic bone lesion affecting all visible bones as well as one left pelvic lymph node. PSA on 10/11/2019 was found to be 203.97 ng/ml. 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 He was startd on Lupron 22.5 mg im q3m, 10/26/2019, and had taken Casodex 50 mg daily for 30 days to prevent flare. Assessment: Today I reviewed the genetic test results with the patient. 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 Patient would be a good candidate for PARP inhibitor including olaparib and rucaparib. However, after reviewing the approval notice, I realized that the PARP inhibitors are approved for castration resistant metastatic prostate adeno carcinoma who has received androgen deprivation therapy and taxane containing chemotherapy. Today, I talked with the patient also about the overall treatment of metastatic hormone sensitive prostate cancer. Based on guidelines, I explained to the patient that patient usually should get androgen deprivation therapy, chemotherapy with docetaxel or AR targeting agents, and bone modifying agents (for example Xgeva). For patients with extensive bone only metastasis, radium 2-3 is also a good option for the patient's. First of all, I reviewed the data of the radium 223 ALSYMPCA trial. I explained to the patient that radium-223 is a radionucleotide, functioning as a radioactive calcium and depositing in the bone. Mustang 223 is an alpha emitter emission of alpha particles. It has a very short length of radiation. The radiation will kill the surrounding malignant cells without significant impairment of the bone marrow function. I talked with him that the treatment compared to placebo can extend the median overall survival from 11.3 months to 14.9 months with a hazard ratio of 0.7. I talked with them that the medication will be given intravenously about every 6 months for twice. I do not think we have the compatibility is in the [place] or nearby. Patient needs to be referred to further [place]. After the discussion, patient seems to be reluctant. Next, I talked about the role of the chemotherapy in metastatic hormone sensitive setting. I explained to the patient that the clinical trials have shown a significant overall survival benefit compared to placebo. It can prolong life overall survival for more than 1 year. And I would recommend that patient consider seriously moving forward with 6 cycles of chemotherapy with docetaxel. Patient also asked about the use of Xtandi. I talked with him that it is also add good option for metastatic hormone sensitive cancer. Today, I talked with the patient about the role of palliative radiation therapy. Patient has significant bilateral hip pain especially on the left side. Showed the patient the bone scan images. The left upper femur has significant disease burden which could be the etiology for the left hip severe pain. I think the it the radiation therapy will be of some help in terms of pain control. Patient voiced understanding and willingness to proceed. As for the Xgeva, I once again encouraged the patient to see a dentist and give us the clearance for moving forward with Xgeva. Plan: Continue Lupron 22.5 mg im every 12 week, next injection 01/17/2020 Radiation Onc referral for palliative XRT to hips Surgery referral for port placement Dental clearance for Xgeva injection RTC on 01/17/2020 follow up, CBC, CMP, PSA, T (2) Pain due to malignant neoplasm metastatic to bone Overview: Patient has had extreme whole-body bone pain due to metastatic prostate cancer. Assessment: Patient currently is using methadone, hydrocodone, and dexamethasone for the pain control. He has been managed by Samantha Huerta. patient has bilateral hip pain. Please see above for discussion of the role of palliative radiation therapy. Plan: Continue follow up with Samantha Huerta Referral to Radiation Oncology for consideration of palliative radiation therapy to bilateral hips.
[2019-12-30 08:39] VITALS: BP 171/89; PULSE 67; RESP 16; O2SAT 97
--- NOTE | 2020-01-04 13:36 | ONC.MSW ---
Description: Care Coordination Activity: Received e-mail request from family to send results of MyRisk to their integrative oncologist, Dr. Yun. Scanned and sent as requested.
--- NOTE | 2020-01-12 15:43 | PC.NURSE ---
Spoke with pt's regarding consolidation of medical appointments and coordinating ferry transportation from [place], where pt resides. Pt's requesting lab draws be completed on [place]. Let pt's know we could fax over orders to the clinic and have labs completed on [place] and request results faxed to this clinic. During conversation, pt's explained that pt has a dental appointment in [place] on January 16, this RN suggested that if it was more convenient for pt, they could go to main lab prior to dental appt for lab draw. Pt's states Oh, that would be great, thank you! Order in place for labs. Pt appt with Dr. little on January 19.
--- NOTE | 2020-01-18 12:48 | ONC.SCHED ---
per Ariadna at Rad/Onc [facility], patient cancelled original appt and did not show up for 2nd appt
--- NOTE | 2020-01-18 14:38 | ONC.SCHED ---
correction call from Ariadna at Rad/Onc [facility], patient did show for appt with Dr. Soliz, he was 30 minutes late but had consult
[2020-01-20 09:05] VITALS: BP 162/81; PULSE 74; RESP 18; TEMP 36.7; O2SAT 98
--- NOTE | 2020-01-20 09:27 | P.PNONC_ITS ---
PN -Subjective Interval history: ID/CC: 74-year-old gentleman with advanced prostate cancer with extensive bone metastasis. HPI: Seng Becker is a 74 year old male. He was referred by Dr. Domenico Roldan for evaluation of metastatic cancer to the bone of unknown primary. Seng used to be a very active man. He was in [place] in June of 2019 when he developed left hip pain. Initially he thought he could overcome by more exercise. He went for physical therapy. However the left hip pain has gotten progressively worse especially in ?wrong position?. The pain can be as severe as 9/10 in severity when it is in the wrong position. In addition patient has noticed significant muscle wasting of the lower extremities especially the left side compared to the right side. He gradually was having problems ambulating and had to use crutches all the time. Patient has lost about 18 lb since then. While in [place], patient had a MRI of the lumbar spine and the pelvis on 09/21/2019. The MRI showed diffusely heterogeneous marrow suspicious for diffuse osseous metastatic disease. Other possibilities would include multiple myeloma or myeloproliferative disorders. He flew back to [facility] and on September 23, [address] Domenico Roldan who referred the patient to our [facility] for further evaluation. Dr. Domenico Roldan prescribed hydrocodone 5/325 every 4 hours on as-needed basis for pain control. On 09/28/2019, patient underwent CT chest abdomen and pelvis. The scan showed diffuse, heterogeneous sclerotic intra-osseous lesions throughout the visualized skeleton compatible with osseous metastasis. No acute compression fractures were noted. No evidence of pathological fractures. It also showed prominent left pelvic side wall lymph node measuring approximately 1.1 cm in short axis dimension. On 09/29/2019, he developed extreme pain and had to lie down on mattress on floor and was not able to get up. He chose no further investigation or treatment. He then decided to get into hospice care ([facility]). For pain control, he was started on methadone. After CT scan of became available, I called and discussed with Kelley Rubin about check serum PSA level. On 10/11/2019, patient underwent laboratory test that showed PSA 203.97 ng/ml. On 10/12/2019, patient was evaluated by Dr. Roldan for pain management. Patient has chose to revoke hospice care. At the time, he was taking methadone every 12 hours, hydrocodone for breakthrough pain together with dexamethasone. Patient said that this regimen works well for the pain. Patient also was evaluated by [facility]. They have received lots of information as far as prostate cancer treatment is concerned. He was started on Casodex 50 mg once a day for 30 days and on 10/26/2019 patient was started on Lupron injection 22.5 mg im. On 12/29/[address] Crawford agreed with the androgen deprivation therapy and hopefully rucaparib if the genetic testing for ZEFERINO positive. In addition, Dr. Machuca also discussed with the patient about possible radium 2-3 given the extensive bone metastasis without visceral metastasi Interval History: On 11/09/2019, patient underwent bone scan at [facility] that showed extensive skeletal metastasis, through the axial and appendicular skeleton, with asymmetric greater involvement over the left femur compared to the right. The degree of isotope uptake in the bones was prominent, to the degree that no residual isotope was excreted through the urinary tract. During his previous visit were, due to bilateral hip pain, I referred the patient to [facility] for further evaluation of the role of palliative radiation therapy. On 01/18/2020, patient was evaluated by Dr. William Soliz. Dr. Soliz recommended a course of palliative radiation therapy directed at symptomatic bilateral hips/proximal femurs, with modification to include other sites depending on the appearance on treatment planning CT pelvic/femurs. Dr. William Soliz thought that because the patient has viable systemic treatment options, focused palliative external beam radiation therapy at this time is favored over systemic radionucleotide (radium 223) treatment. Patient came in here today accompanied by his . Patient is complaining some hoarse voice with some problems swallowing. Patient recently underwent tooth extraction on 01/18/2020. Five stitches were used per patient. The other main complaint has been the hot flashes which occurs 6 to 7 times a day. Treatment summary Lupron 22.5 mg im q3m, 10/26/2019 - Casodex 50 mg daily x 30 days, 10/26/2019 - Patient Self-Reported Symptoms SR Constitution: Weight loss/gain SR ears, nose, mouth, throat issues: Difficulty swallowing, Hoarseness SR respiratory issues: Shortness of breath, Difficulty breathing SR Cardiovascular issues: Shortness of breath with activity or lying flat, Extreme swelling SR Skin issues: Skin rash or itching, Skin color changes, Blistering or peeling SR Gastrointestinal issues: Constipation SR Genitourinary issues: Frequent urination SR Musculoskeletal issues: Joint pain or swelling, Muscle weakness, Bone pain SR Neuro issues: Tremors or shaking SR Endocrine issues: Hot flashes - Additional ROS All systems PM: reviewed and no additional remarkable complaints except as stated Home Medications and Allergies Home Medications Medication Instructions Recorded Confirmed Type Prevnar 13 (PF) 0.5 ml IM X1 #1 ea 12/26/16 01/20/20 Rx Zostavax (PF) 0.5 ml SQ STAT #1 ml 12/26/16 12/07/19 Rx Cannibus 1 drp DAILY 09/28/19 01/20/20 History hydrocodone-acetaminophen 1 tab PRN PRN 09/28/19 01/20/20 History polyethylene glycol 3350 [Miralax] 17 g PO DAILY PRN 09/28/19 01/20/20 History ascorbic acid (vitamin C) [Vitamin 7,000 mg PO DAILY 10/19/19 01/20/20 History C] dexamethasone 4 mg PO DAILY 10/19/19 01/20/20 History magnesium oxide 400 mg PO DAILY 10/19/19 01/20/20 History methadone 5 mg PO Q8H 10/19/19 01/20/20 History Curapro 750 mg DAILY 12/07/19 01/20/20 History Vitamin D3 4,000 units DAILY 12/07/19 01/20/20 History calcium-vits P2-O-P0-minerals 2 tab PO BID 12/07/19 01/20/20 History [Bone Essentials] zinc 30 mg DAILY 01/20/20 01/20/20 History Allergies Allergy/AdvReac Type Severity Reaction Status Date / Time Penicillins [PENICILLINS] Allergy Severe ANAPHYLAXIS Unverified 10/29/17 13:08 CONTRAST DYE Allergy Severe HYPOTENSION Uncoded 10/29/17 13:08 Exam Vital signs: Last Vital Signs Temp 98.1 F 01/20/20 09:05 Pulse 74 01/20/20 09:05 Resp 18 01/20/20 09:05 BP 162/81 H 01/20/20 09:05 Pulse Ox 98 01/20/20 09:05 Narrative: ECOG 1 Gen: WD, well nourished, NAD, pleasant and cooperative. Accompanied by his . HEENT: NCAT, EOMI, PERRLA, anicteric sclera. Neck: Supple, No palpable thyromegaly or lymphadenopathy. Respiratory: CTAB, no wheezes audible. No JVD Cardiovascular: RRR, S1 and S2 normal, SM 2/6 aortic valve Abdomen: Soft, NTND, BS normal, no palpable organomegaly Musculoskeletal: Tenderness elicited from the right scapular, left scapular, left lower rib, left greater trochanter. Extremities: No LE pitting edema. Bilateral lower extremity muscle wasting noted especially on the left side. Lymphatic: no palpable lymph nodes in the neck, axillae, or groins. Neurological: AOx3, CN II-XII grossly intact. No focal motor or sensory deficit. Psychiatric: Normal affect, appropriate mood, no depression, no anxiety. Results - Labs Lab results from 01/18/2020 WBC 10.3, hemoglobin 13.2, hematocrit 39.8, platelets 228. Sodium 138, potassium 4.2, chloride 98, carbon dioxide 34, BUN 19, creatinine 0. 66, glucose 118, calcium 9.3, total bilirubin 0.3, AST 22, ALT 32, alk-phos 250, total protein 6.5, albumin 4.2, globulin 2.3. PSA 6.67. Testosterone level less than 4.90. Assessment and Plan (1) Metastatic cancer to bone Overview: Seng is a 74 year old male with advanced prostate cancer with extensive bone metastasis diagnosed on 10/12/2019. He initially presented with rapidly progressive worsening whole body bone pain, weight loss and lower extremity muscle wasting in 06/2019. CT CAP scan on 09/28/2019 showed extensive sclerotic bone lesion affecting all visible bones as well as one left pelvic lymph node. PSA on 10/11/2019 was found to be 203.97 ng/ml. 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 He was started on Lupron 22.5 mg im q3m, 10/26/2019, and had taken Casodex 50 mg daily for 30 days to prevent flare. Assessment: Patient and patient's have been very much interested in the new approved medication approved Rucaparib especially given that he has a germline mutation ZEFERINO genes. I explained to them that for hormone sensitive prostate cancer, I do not think that the PARP inhibitors have ever been approved. The PARP inhibitors including olaparib and rucaparib have been approved for castration refractory prostate cancer with tumor harbouring homologous repair defect genetic markers. Patient voiced understanding. Furthermore, I showed the patient the results of TRITON2 phase 2 trial that showed no objective response in patients with tumor ZEFERINO mutation. The result did cast some question on the effect of rucaparib in patients with ZEFERINO mutation. That being said, the other PARP inhibitor, olaparib has been approved in patients with castration refractory prostate cancer with tumor BRCA/ZEFERINO mutation. In the near future, more data will become available to guide therapy, especially the ongoing TRITON3 phase 3 trial. I talked with them that for hormone sensitive prostate cancer, the standard of care includes androgen deprivation therapy, +/- docetaxel chemotherapy, +/- next generation androgen receptor targeting therapy. I talked with him that in addition to lupron, I would highly recommend upfront chemotherapy. I explained to the patient that based on the clinical trial CHARTEERED. patient will achieve aN over survival benefit more than 1 year at the expense of 6 cycles of chemotherapy with docetaxel. It is a limited defined course of treatment with big benefit. After the treatment, patient is also a good candidate for new androgen receptor targeting therapy. Next we talked about the role of radium 2-3. It has a defined treatment course with moderate overall survival benefit. I think it maybe a good option for him. Patient has not decided yet. I talked with him that small benefit can add up to a large benefit. As far as the bone metastasis is concerned, I also highly encourage patient to proceed with treatment with Xgeva. Patient currently just had the tooth extracted. I talked with them that I will wait until the wound has completely healed. I emphasized the rare but serious side effects of osteonecrosis of the jaw. Patient and patient's both voiced understanding and intention to move forward. As far as the palliative radiation therapy is concerned, patient currently is being followed by Dr. William Soliz at the [facility]. Patient will start treatment within the next 1-2 weeks. I talked with them that the goal is palliative pain control. Eventually, patient has decided that he would like to pursue active chemotherapy with docetaxel. He agreed to proceed with port placement. Plan: Ok to proceed to Lupron 22.5 mg im today and continue every 12 week Continue radiation XRT to hips under the care Dr. William Soliz. Surgery referral for port placement Xgeva injection to be started when tooth extraction wound heals. RTC in 2 weeks for chemotherapy with Docetaxel, labs per protocol.
[2020-01-20] MEDS: LEUPROLIDE DEPOT [ELIGARD] 22.5 MG SYR SUBCUT (10:51)
--- NOTE | 2020-01-20 13:32 | PC.NURSE ---
chemotherapy Education: Pt provided written information on all topics discussed. Written materials printed from www.[facility].com Pt was given an overview of cancer and mechanism of action of cancer cells, that cancer is caused by cells that are dividing rapidly, and out of control. Traditional chemotherapy works by targeting the fast dividing cells and killing them. Chemotherapy affecting healthy cells dividing quickly causes many of the side effects (hair follicles, bone marrow, mucus membranes). Overview of blood cell functions of white cells to fight infection, red cells to carry oxygen, and platelets to stop bleeding was discussed, and that when bone marrow is affected by chemo, there is a decrease in production of these cells. Home care of the patient following chemotherapy was discussed. Body fluids will be contaminated for 48 hours following treatment, and any body fluids handled by caregivers should be handled wearing gloves, surfaces need to be cleaned with soap and water, any soiled linens or clothing need to be washed separately in hot water, toilet lid should be closed when flushing, person cleaning the toilet should wear gloves. How chemotherapy is administered by the RN?s in the clinic, that orders are double checked by pharmacy and checked again by two RN?s prior to administration. Nurses wear protective gear to prevent exposure to them of the chemotherapy agents which can also cause cancer. Cancer center information discussed and written hand out provided listing on-call oncologist available weekends and after hours triage R.N. hours and infusion room guide. New patient folder given to pt, which includes clinic names, phone numbers, clinic information, calendar, cancer glossary, and list of resources. Handout on advanced directives Common side effects of chemotherapy were discussed with self care tips for prevention of complications. Information also provided in writing. These included: Low blood counts (anemia, thrombocytopenia, neutropenia) Hair loss (alopecia) Nausea and vomiting Decreased appetite Loss of fertility Diarrhea Mouth sores Constipation Peripheral neuropathy Chemo brain/cognitive changes Fatigue Instructions on when to call your healthcare team or on-call physician immediately: Fever of 100.4 or higher, chills, any signs of infection Shortness of breath, wheezing, difficulty breathing, closing of throat, swelling of face, hives (signs of possible allergic reaction) Chest pain, fast heart beat or feelings of a different heart rhythm Swelling of an extremity with or without pain signs of stroke Instructions on when to call your healthcare team within the next 24 hours Nausea that interferes with ability to eat and unrelieved with prescribed medication Diarrhea (4-6 episodes in 24 hour period). Unusual bleeding or bruising Black or tarry stools, or blood in your stools Blood in the urine pain or burning with urination Extreme fatigue (unable to perform self-care activities) Mouth sores or sore areas in your mouth Bad headache Dizziness or lightheadedness Large weight gain over a short period of time General self-care tips while undergoing treatment discussed were as follows. Written materials were provided covering in detail and additional self care tips. Drink at least 2-3 quarts (8-10 glasses) of no-caffeinated beverages daily unless you are instructed otherwise and empty your bladder frequently Report any concerning symptoms to your healthcare team Avoid crowds and sick people, wash your hands frequently Use a soft bristled toothbrush, rinse three times a day with 1 tsp baking soda or 1 tsp salt mixed with warm water Avoid any mouthwashes or oral and skin products containing alcohol or fragrances Use electric razors to avoid cutting yourself Avoid contact sports or activities that could cause head injury or bleeding Avoid sun exposure, wear SPF 15 or higher, wear protective clothing Get plenty of rest, meter your activities Maintain good nutrition Avoid alcoholic beverages Attend your scheduled appointments and lab draws Treatment regimen reviewed and medications were discussed with attention to specific side effects and self care for the pt?s treatment regimen. Pt encouraged to keep a list of questions that may arise after this teaching session and bring back to next clinic visit to address. All pt's questions answered at this time. Pt verbalizes understanding of treatment plan. Sadie
--- NOTE | 2020-01-27 13:07 | PC.NURSE ---
Copy of email sent to Nimisha from pt regarding treatment given to Dr. Perez. Pt has decided not to move forward with Docetaxel at this time. Pt opting for Zytiga and prednisone. Pt's reports pt will also start radiation at the beginning of February. This RN requested Dr. Perez to enter orders after reviewing email from pt. Scheduling notified to cancel chemo appt for February 02.
--- NOTE | 2020-02-09 12:01 | ONC.MSW ---
[facility] Co-Pay Assistance Activity: Pt indicated to triage yesterday that they do not have part D drug coverage, and needed financial assistance from the fashion photographer. WATCH INSPECTOR completed the application and emailed to pt for signature. Will fax to [employer] tomorrow once Dr. Perez signs. Plan: Will f/u with pt once we are notified of the determination outcome.
--- NOTE | 2020-02-10 14:21 | ONC.MSW ---
[facility] Patient Co-Pay Assistance Application Activity: Completed and faxed in to [employer]. Will update patient once a determination has been made.
--- NOTE | 2020-02-17 13:15 | ONC.MSW ---
Zytiga Approval Letter Activity: Received an approval letter from [employer] for pt's Zytiga. Approval is from 02/17/20-02/16/21. Pt was notified by [employer] risk tech faxed prescription to [facility].
--- NOTE | 2020-02-24 09:14 | ONC.MSW ---
Description: Care Coordination Activity: Pt sent the following email to this SAMPLE WASHER. SAMPLE WASHER discussed with Dr. Perez, who would rather that we schedule a f/f appt with pt as soon as possible to discuss these questions with him further before starting the Zytiga. Schedulers will call this am. We have received our Prednisone and the Zytiga ......came special delivery yesterday.? THANK YOU SO MUCH FOR YOUR HELP WITH THIS. Also, it looks like we need to address three points...perhaps more...before beginning. ? 1. We need to have the normal blood draw which also has the PSA ....It's been 5 weeks and as we are starting the new treatment a basis would be established also. ??? Please OK the blood draw as I can come in today or Friday.?? Thanks again. ? 2. 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 Seems I am a CSPC because of dosage of one 5m Prednisone per day. ? 3. Before beginning this treatment it appears I should have had the gonadotropin-releasing hormone-GnGH analog concurrently or should have had an orchiectomy? Please advise or weigh in on this as it's found on the drug.[email or web address].... web site.? It could be old or irrelevant but you do encourage us to be pro-active.??? BTW, I am in my first week of radiation at [facility] with the External Beam at 30 units per session times 10. Please let me know if I will be doing the blood draw today or tomorrow as it would help me schedule our ferry times.?? My cell is [phone] or email.? Thank You for taking the time with this and us.... We can only imagine how busy you folks are. MY BEST, Familia?
[2020-03-02 15:36] VITALS: BP 152/88; PULSE 75; RESP 18; TEMP 36.7; O2SAT 98
--- NOTE | 2020-03-02 15:51 | ONC.PN ---
PN -Subjective Interval history: ID/CC: 74-year-old gentleman with advanced prostate cancer with extensive bone metastasis. HPI: Seng Becker is a 74 year old male. He was referred by Dr. Domenico Roldan for evaluation of metastatic cancer to the bone of unknown primary. Seng used to be a very active man. He was in [place] in June of 2019 when he developed left hip pain. Initially he thought he could overcome by more exercise. He went for physical therapy. However the left hip pain has gotten progressively worse especially in ?wrong position?. The pain can be as severe as 9/10 in severity when it is in the wrong position. In addition patient has noticed significant muscle wasting of the lower extremities especially the left side compared to the right side. He gradually was having problems ambulating and had to use crutches all the time. Patient has lost about 18 lb since then. While in [place], patient had a MRI of the lumbar spine and the pelvis on 09/21/2019. The MRI showed diffusely heterogeneous marrow suspicious for diffuse osseous metastatic disease. Other possibilities would include multiple myeloma or myeloproliferative disorders. He flew back to [facility] and on September 23, [address] Domenico Roldan who referred the patient to our [facility] for further evaluation. Dr. Domenico Roldan prescribed hydrocodone 5/325 every 4 hours on as-needed basis for pain control. On 09/28/2019, patient underwent CT chest abdomen and pelvis. The scan showed diffuse, heterogeneous sclerotic intra-osseous lesions throughout the visualized skeleton compatible with osseous metastasis. No acute compression fractures were noted. No evidence of pathological fractures. It also showed prominent left pelvic side wall lymph node measuring approximately 1.1 cm in short axis dimension. On 09/29/2019, he developed extreme pain and had to lie down on mattress on floor and was not able to get up. He chose no further investigation or treatment. He then decided to get into hospice care ([facility]). For pain control, he was started on methadone. After CT scan of 09/28/2019 became available, I called and discussed with Kelley Rubin about check serum PSA level. On 10/11/2019, patient underwent laboratory test that showed PSA 203.97 ng/ml. On 10/12/2019, patient was evaluated by Dr. Roldan for pain management. Patient has chose to revoke hospice care. At the time, he was taking methadone every 12 hours, hydrocodone for breakthrough pain together with dexamethasone. Patient said that this regimen works well for the pain. Patient also was evaluated by [facility]. They have received lots of information as far as prostate cancer treatment is concerned. He was started on Casodex 50 mg once a day for 30 days and on 10/26/2019 patient was started on Lupron injection 22.5 mg im. On 12/29/[address] Crawford agreed with the androgen deprivation therapy and hopefully rucaparib if the genetic testing for ZEFERINO positive. In addition, Dr. Machuca also discussed with the patient about possible radium 2-3 given the extensive bone metastasis without visceral metastasi On 11/09/2019, patient underwent bone scan at [facility] that showed extensive skeletal metastasis, through the axial and appendicular skeleton, with asymmetric greater involvement over the left femur compared to the right. The degree of isotope uptake in the bones was prominent, to the degree that no residual isotope was excreted through the urinary tract. On 01/18/2020, patient was evaluated by Dr. William Soliz. Dr. Soliz recommended a course of palliative radiation therapy directed at symptomatic bilateral hips/proximal femurs, with modification to include other sites depending on the appearance on treatment planning CT pelvic/femurs. Dr. William Soliz thought that because the patient has viable systemic treatment options, focused palliative external beam radiation therapy at this time is favored over systemic radionucleotide (radium 223) treatment. Interval History: Patient currently is receiving external beam radiotherapy. Patient said that tomorrow will be the last day of treatment. According to patient and patient's , the symptoms of pain have improved after the patient was started on radiation therapy. Patient has already received the medication Zytiga. However patient has not started the medication yet. He has a lot of questions. He has read the whole for product insert. He came in today accompanied by his to consult on the use of the Zytiga. Clinically, he is complaining mild fatigue. Treatment summary Lupron 22.5 mg im q3m, 10/26/2019 - Casodex 50 mg daily x 30 days, 10/26/2019 - Patient Self-Reported Symptoms SR Constitution: Chills, Night Sweats SR ears, nose, mouth, throat issues: Difficulty swallowing SR respiratory issues: Shortness of breath SR Cardiovascular issues: Shortness of breath with activity or lying flat, Extreme swelling SR Skin issues: Skin color changes SR Gastrointestinal issues: Constipation SR Genitourinary issues: Frequent urination SR Musculoskeletal issues: Difficulty walking SR Neuro issues: Tremors or shaking SR Endocrine issues: Hot flashes - Additional ROS All systems PM: reviewed and no additional remarkable complaints except as stated Home Medications and Allergies Home Medications Medication Instructions Recorded Confirmed Type Prevnar 13 (PF) 0.5 ml IM X1 #1 ea 12/26/16 01/20/20 Rx Zostavax (PF) 0.5 ml SQ STAT #1 ml 12/26/16 12/07/19 Rx Cannibus 1 drp DAILY 09/28/19 01/20/20 History hydrocodone-acetaminophen 1 tab PRN PRN 09/28/19 01/25/20 History polyethylene glycol 3350 [Miralax] 17 g PO DAILY PRN 09/28/19 01/20/20 History ascorbic acid (vitamin C) [Vitamin 7,000 mg PO DAILY 10/19/19 01/25/20 History C] dexamethasone 4 mg PO DAILY 10/19/19 01/25/20 History magnesium oxide 400 mg PO DAILY 10/19/19 01/25/20 History methadone 5 mg PO Q8H 10/19/19 01/25/20 History Curapro 750 mg DAILY 12/07/19 01/20/20 History Vitamin D3 4,000 units DAILY 12/07/19 01/20/20 History calcium-vits Y6-H-Q3-minerals 2 tab PO BID 12/07/19 01/25/20 History [Bone Essentials] zinc 30 mg DAILY 01/20/20 01/20/20 History prednisone 5 mg PO BID #60 tab 01/31/20 Rx abiraterone 1,000 mg PO QAM #120 tab 02/14/20 Rx Allergies Allergy/AdvReac Type Severity Reaction Status Date / Time Penicillins [PENICILLINS] Allergy Severe ANAPHYLAXIS Unverified 10/29/17 13:08 CONTRAST DYE Allergy Severe HYPOTENSION Uncoded 10/29/17 13:08 Exam Vital signs: Vital Signs Temp Pulse Resp BP Pulse Ox 03/02/20 15:36 98.1 F 75 18 152/88 H 98 Intake and Output 08/12/20 08/13/20 08/13/20 23:59 07:59 15:59 Other: Weight 81.8 kg Patient Weight 03/02/20 23:59 Weight 81.8 kg Narrative: ECOG 1 Gen: WD, well nourished, NAD, pleasant and cooperative. Accompanied by his . HEENT: NCAT, EOMI, PERRLA, anicteric sclera. Neck: Supple, No palpable thyromegaly or lymphadenopathy. Respiratory: CTAB, no wheezes audible. No JVD Cardiovascular: RRR, S1 and S2 normal, SM 2/6 aortic valve Abdomen: Soft, NTND, BS normal, no palpable organomegaly Musculoskeletal: Tenderness elicited from the right scapular, left scapular, left lower rib, left greater trochanter. Extremities: No LE pitting edema. Bilateral lower extremity muscle wasting noted especially on the left side. Lymphatic: no palpable lymph nodes in the neck, axillae, or groins. Neurological: AOx3, CN II-XII grossly intact. No focal motor or sensory deficit. Psychiatric: Normal affect, appropriate mood, no depression, no anxiety. Results - Labs Laboratory Last Values Prostate Specific Ag 3.71 ng/mL (0.10-4.00) 12/07/19 15:50 Assessment and Plan (1) Metastatic cancer to bone Overview: Seng is a 74 year old male with advanced prostate cancer with extensive bone metastasis diagnosed on 10/12/2019. He initially presented with rapidly progressive worsening whole body bone pain, weight loss and lower extremity muscle wasting in 06/2019. CT CAP scan on 09/28/2019 showed extensive sclerotic bone lesion affecting all visible bones as well as one left pelvic lymph node. PSA on 10/11/2019 was found to be 203.97 ng/ml. 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 He was started on Lupron 22.5 mg im q3m, 10/26/2019, and had taken Casodex 50 mg daily for 30 days to prevent flare. Assessment: Patient has received the Zytiga but has not started yet. He came here today for consultation about the use of Zytiga/prednisone. He brought in the product insert and apparently he has read all the but insert. He understood that for castration sensitive prostate cancer, the combination therapy with Lupron and Zytiga/prednisone has significant benefit including survival benefit. He said he at this moment was not sure if he is castration sensitive or castration refractory. 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 Patient voiced understanding. Then I talked with the patient that the Zytiga is an androgen synthesis inhibitor. It blocked the synthesis pathway which will usually need to mineralocorticoid excess that sometimes can result in hypokalemia and hypertension. That is why patient is encouraged to take prednisone at the same time when he is taking the Zytiga. The prednisone can help improve the mineral corticoid axis (swelling) and also prevent hypokalemia patient seems to understand. In addition it is known that Zytiga carries the risk of hepatic toxicity. Therefore during the treatment, we usually monitor the CBC/CMP every 2 weeks for 2 months. If patient tolerates the medication well, then we will probably see the patient once a month or even was every 2-3 months there after. Plan: Cont Lupron 22.5 mg im q12w, next dose in 03/2020 Continue and complete EBRT per Dr. William Soliz. CBC,CMP, PSA, T today Patient agrees to start Zytiga 1000 mg/d with prednisone 5 mg/d on Friday (03/06/2020). Xgeva injection to be started when tooth extraction wound heals. RTC on 03/20/2020, CBC, CMP, PSA, T
[2020-03-02 18:20] LABS: Add Manual Diff / Slide Review NO; Basophils Absolute Auto 0 /uL (0-100); Basophils Percent Auto 0.2 % (0-2); Eosinophils Absolute Auto 0 /uL (0-450); Eosinophils Percent Auto 0.1 % (2-4); Hematocrit 37.8 % (41-53); Hemoglobin 12.6 g/dL (13.5-17.5); Lymphocytes Absolute Auto 600 /uL (1100-4500); Lymphocytes Percent Auto 7.2 % (25-40); Mean Corpuscular HGB Conc 33.5 % (30-36); Mean Corpuscular Hemoglobin 28.7 PG (26-34); Mean Corpuscular Volume 85.8 fL (80-100); Monocytes Absolute Auto 800 /uL (0-900); Monocytes Percent Auto 9.1 % (3-14); Neutrophils Absolute Auto 7000 /uL (1500-7000); Neutrophils Percent Auto 83.4 % (50-75); Platelet Count 202 X10^3/uL (150-400); Red Cell Distribution Width 16.2 % (11.6-14.8); White Blood Cell Count 8.3 X10^3/uL (4.5-11.0)
[2020-03-02 18:33] LABS: Alanine Aminotransferase 28 IU/L (<50); Albumin 4.2 g/dL (3.5-5.0); Albumin Globulin Ratio 1.5 (1.0-2.8); Alkaline Phosphatase 323 U/L (38-126); Aspartate Aminotransferase 30 IU/L (17-59); BUN Creatinine Ratio 29.2 (6-22); Bilirubin Total 0.3 mg/dL (0.2-1.3); Blood Urea Nitrogen 19 mg/dL (9-20); Calcium 9.1 mg/dL (8.4-10.2); Carbon Dioxide 33 mmol/L (22-32); Chloride 103 mmol/L (98-107); Estimated Glomerular Filt Rate > 60.0 mL/min (>60); Globulin 2.8 g/dL (1.7-4.1); Glucose 88 mg/dL (80-110); HEMOLYSIS < 15 (0-50); Potassium 4.2 mmol/L (3.4-5.1); Sodium 139 mmol/L (137-145)
[2020-03-02 19:02] LABS: Prostate Specific Antigen 49.2 ng/mL (0.10-4.00)
[2020-03-02 19:05] LABS: Testosterone 6.13 ng/dL (71.8-623)
[2020-03-20 09:21] LABS: Add Manual Diff / Slide Review NO; Basophils Absolute Auto 0 /uL (0-100); Basophils Percent Auto 0.6 % (0-2); Eosinophils Absolute Auto 100 /uL (0-450); Eosinophils Percent Auto 0.9 % (2-4); Hematocrit 37.7 % (41-53); Hemoglobin 12.6 g/dL (13.5-17.5); Lymphocytes Absolute Auto 900 /uL (1100-4500); Lymphocytes Percent Auto 11.8 % (25-40); Mean Corpuscular HGB Conc 33.3 % (30-36); Mean Corpuscular Hemoglobin 28.5 PG (26-34); Mean Corpuscular Volume 85.5 fL (80-100); Monocytes Absolute Auto 800 /uL (0-900); Monocytes Percent Auto 9.9 % (3-14); Neutrophils Absolute Auto 6000 /uL (1500-7000); Neutrophils Percent Auto 76.8 % (50-75); Platelet Count 203 X10^3/uL (150-400); Red Blood Cell Count 4.41 X10^6/uL (4.5-5.9); Red Cell Distribution Width 16.1 % (11.6-14.8); White Blood Cell Count 7.8 X10^3/uL (4.5-11.0)
[2020-03-20 09:38] LABS: Alanine Aminotransferase 39 IU/L (<50); Albumin 4.2 g/dL (3.5-5.0); Albumin Globulin Ratio 1.6 (1.0-2.8); Alkaline Phosphatase 539 U/L (38-126); Aspartate Aminotransferase 34 IU/L (17-59); Bilirubin Total 0.7 mg/dL (0.2-1.3); Blood Urea Nitrogen 14 mg/dL (9-20); Calcium 9.4 mg/dL (8.4-10.2); Carbon Dioxide 35 mmol/L (22-32); Chloride 101 mmol/L (98-107); Estimated Glomerular Filt Rate > 60.0 mL/min (>60); Globulin 2.7 g/dL (1.7-4.1); Glucose 118 mg/dL (80-110); HEMOLYSIS < 15 (0-50); Potassium 4.2 mmol/L (3.4-5.1); Sodium 138 mmol/L (137-145); Total Protein 6.9 g/dL (6.3-8.2)
[2020-03-20 10:09] LABS: Prostate Specific Antigen 74.7 ng/mL (0.10-4.00)
[2020-03-20 10:11] LABS: Testosterone 39.5 ng/dL (71.8-623)
--- NOTE | 2020-03-20 13:56 | ONC.PN ---
PN -Subjective Interval history: ID/CC: 74-year-old gentleman with advanced prostate cancer with extensive bone metastasis. HPI: Seng Becker is a 74 year old male. He was referred by Dr. Domenico Roldan for evaluation of metastatic cancer to the bone of unknown primary. Seng used to be a very active man. He was in [place] in June of 2019 when he developed left hip pain. Initially he thought he could overcome by more exercise. He went for physical therapy. However the left hip pain has gotten progressively worse especially in ?wrong position?. The pain can be as severe as 9/10 in severity when it is in the wrong position. In addition patient has noticed significant muscle wasting of the lower extremities especially the left side compared to the right side. He gradually was having problems ambulating and had to use crutches all the time. Patient has lost about 18 lb since then. While in [place], patient had a MRI of the lumbar spine and the pelvis on 09/21/2019. The MRI showed diffusely heterogeneous marrow suspicious for diffuse osseous metastatic disease. Other possibilities would include multiple myeloma or myeloproliferative disorders. He flew back to [facility] [place] and on [place] 23, [address] Domenico Roldan who referred the patient to our [facility] for further evaluation. Dr. Domenico Roldan prescribed hydrocodone 5/325 every 4 hours on as-needed basis for pain control. On 09/28/2019, patient underwent CT chest abdomen and pelvis. The scan showed diffuse, heterogeneous sclerotic intra-osseous lesions throughout the visualized skeleton compatible with osseous metastasis. No acute compression fractures were noted. No evidence of pathological fractures. It also showed prominent left pelvic side wall lymph node measuring approximately 1.1 cm in short axis dimension. On 09/29/2019, he developed extreme pain and had to lie down on mattress on floor and was not able to get up. He chose no further investigation or treatment. He then decided to get into hospice care ([facility] For pain control, he was started on methadone. After CT scan of 09/28/2019 became available, I called and discussed with Kelley Rubin about check serum PSA level. On 10/11/2019, patient underwent laboratory test that showed PSA 203.97 ng/ml. On 10/12/2019, patient was evaluated by Dr. Roldan for pain management. Patient has chose to revoke hospice care. At the time, he was taking methadone every 12 hours, hydrocodone for breakthrough pain together with dexamethasone. Patient said that this regimen works well for the pain. Patient also was evaluated by [facility]. They have received lots of information as far as prostate cancer treatment is concerned. He was started on Casodex 50 mg once a day for 30 days and on 10/26/2019 patient was started on Lupron injection 22.5 mg im. On 12/29/[address] Crawford agreed with the androgen deprivation therapy and hopefully rucaparib if the genetic testing for ZEFERINO positive. In addition, Dr. Machuca also discussed with the patient about possible radium 2-3 given the extensive bone metastasis without visceral metastasi On 11/09/2019, patient underwent bone scan at [facility] that showed extensive skeletal metastasis, through the axial and appendicular skeleton, with asymmetric greater involvement over the left femur compared to the right. The degree of isotope uptake in the bones was prominent, to the degree that no residual isotope was excreted through the urinary tract. On 01/18/2020, patient was evaluated by Dr. William Soliz. Dr. Soliz recommended a course of palliative radiation therapy directed at symptomatic bilateral hips/proximal femurs, with modification to include other sites depending on the appearance on treatment planning CT pelvic/femurs. Dr. William Soliz thought that because the patient has viable systemic treatment options, focused palliative external beam radiation therapy at this time is favored over systemic radionucleotide (radium 223) treatment. Interval History: Patient has completed external beam radiotherapy. Patient said that he has not noticed anything different. He came here today accompanied by his . He started Zytega 2 weeks ago (03/06/2020) together with prednisone 5 mg daily. He overall has tolerated Zytega very well. He is also taking prednisone 5 mg once a day. No swelling. Recently, patient developed back pain after yard work and boat work etc.. Patient said that he had to take hydrocodone down for 6 times to control the pain. Now the pain is completely resolved. Patient reports good appetite. Patient has lost weight on purpose. Patient denies any shortness of breath or chest pain. No abdominal pain. No diarrhea and no constipation. Patient currently is being followed by Dr. Vu for tooth extraction. He said there is some bone chips left in place and more procedures are anticipated. He has not had clearance yet for bone agent. Treatment summary Lupron 22.5 mg im q3m, 10/26/2019 - Casodex 50 mg daily x 30 days, 10/26/2019 Zytega 1000 mg daily 03/06/2020 - - Patient Self-Reported Symptoms SR Constitution: Chills, Night Sweats SR ears, nose, mouth, throat issues: Difficulty swallowing SR respiratory issues: Shortness of breath SR Cardiovascular issues: Shortness of breath with activity or lying flat, Extreme swelling SR Skin issues: Skin color changes SR Gastrointestinal issues: Constipation SR Genitourinary issues: Frequent urination SR Musculoskeletal issues: Difficulty walking SR Neuro issues: Tremors or shaking SR Endocrine issues: Hot flashes - Additional ROS All systems PM: reviewed and no additional remarkable complaints except as stated Home Medications and Allergies Home Medications Medication Instructions Recorded Confirmed Type Prevnar 13 (PF) 0.5 ml IM X1 #1 ea 12/26/16 03/20/20 Rx Zostavax (PF) 0.5 ml SQ STAT #1 ml 12/26/16 03/20/20 Rx Cannibus 1 drp DAILY 09/28/19 03/20/20 History hydrocodone-acetaminophen 1 tab PRN PRN 09/28/19 03/20/20 History polyethylene glycol 3350 [Miralax] 17 g PO DAILY PRN 09/28/19 03/20/20 History ascorbic acid (vitamin C) [Vitamin 7,000 mg PO DAILY 10/19/19 03/20/20 History C] dexamethasone 4 mg PO DAILY 10/19/19 03/20/20 History magnesium oxide 400 mg PO DAILY 10/19/19 03/20/20 History methadone 5 mg PO Q8H 10/19/19 03/20/20 History Curapro 750 mg DAILY 12/07/19 03/20/20 History Vitamin D3 4,000 units DAILY 12/07/19 03/20/20 History calcium-vits H6-U-X9-minerals 2 tab PO BID 12/07/19 03/20/20 History [Bone Essentials] zinc 30 mg DAILY 01/20/20 03/20/20 History prednisone 5 mg PO BID #60 tab 01/31/20 03/20/20 Rx abiraterone 1,000 mg PO QAM #120 tab 07/27/20 08/31/20 Rx Allergies Allergy/AdvReac Type Severity Reaction Status Date / Time Penicillins [PENICILLINS] Allergy Severe ANAPHYLAXIS Unverified 10/29/17 13:08 CONTRAST DYE Allergy Severe HYPOTENSION Uncoded 10/29/17 13:08 Exam Vital signs: 03/20/20 23:31 Last Vital Signs Temp 98 F 03/20/20 14:06 Pulse 72 03/20/20 14:06 Resp 18 03/20/20 14:06 BP 140/83 03/20/20 14:06 Pulse Ox 98 03/20/20 14:06 Narrative: ECOG 1 Gen: WD, well nourished, NAD, pleasant and cooperative. Accompanied by his . HEENT: NCAT, EOMI, PERRLA, anicteric sclera. Respiratory: no use of accessary respiratory muscle. Neurological: AOx3, CN II-XII grossly intact. No focal motor or sensory deficit. Psychiatric: Normal affect, appropriate mood, no depression, no anxiety. Results - Labs Laboratory Last Values WBC 7.8 X10^3/uL (4.5-11.0) 03/20/20 09:01 RBC 4.41 X10^6/uL (4.5-5.9) L 03/20/20 09:01 Hgb 12.6 g/dL (13.5-17.5) L 03/20/20 09:01 Hct 37.7 % (41-53) L 03/20/20 09:01 MCV 85.5 fL (80-100) 03/20/20 09:01 MCH 28.5 PG (26-34) 03/20/20 09:01 MCHC 33.3 % (30-36) 03/20/20 09:01 RDW 16.1 % (11.6-14.8) H 03/20/20 09:01 Plt Count 203 X10^3/uL (150-400) 03/20/20 09:01 Neut % (Auto) 76.8 % (50-75) H 03/20/20 09:01 Lymph % (Auto) 11.8 % (25-40) L 03/20/20 09:01 [place] % (Auto) 9.9 % (3-14) 03/20/20 09:01 Eos % (Auto) 0.9 % (2-4) L 03/20/20 09:01 Baso % (Auto) 0.6 % (0-2) 03/20/20 09:01 Neut # (Auto) 6000 /uL (2877-4912) 03/20/20 09:01 Lymph # (Auto) 900 /uL (1175-7873) L 03/20/20 09:01 [place] # (Auto) 800 /uL (0-900) 03/20/20 09:01 Eos # (Auto) 100 /uL (0-450) 03/20/20 09:01 Baso # (Auto) 0 /uL (0-100) 03/20/20 09:01 Sodium 138 mmol/L (137-145) 03/20/20 09:01 Potassium 4.2 mmol/L (3.4-5.1) 03/20/20 09:01 Chloride 101 mmol/L (98-107) 03/20/20 09:01 Carbon Dioxide 35 mmol/L (22-32) H 03/20/20 09:01 BUN 14 mg/dL (9-20) 03/20/20 09:01 Creatinine 0.70 mg/dL (0.66-1.25) 03/20/20 09:01 Estimated GFR > 60.0 mL/min (>60) 03/20/20 09:01 BUN/Creatinine Ratio 20.0 (6-22) 03/20/20 09:01 Glucose 118 mg/dL (80-110) H 03/20/20 09:01 Calcium 9.4 mg/dL (8.4-10.2) 03/20/20 09:01 Total Bilirubin 0.7 mg/dL (0.2-1.3) 03/20/20 09:01 AST 34 IU/L (17-59) 03/20/20 09:01 ALT 39 IU/L (<50) 03/20/20 09:01 Alkaline Phosphatase 539 U/L (38-126) H 03/20/20 09:01 Total Protein 6.9 g/dL (6.3-8.2) 03/20/20 09:01 Albumin 4.2 g/dL (3.5-5.0) 03/20/20 09:01 Globulin 2.7 g/dL (1.7-4.1) 03/20/20 09:01 Albumin/Globulin Ratio 1.6 (1.0-2.8) 03/20/20 09:01 Prostate Specific Ag 74.7 ng/mL (0.10-4.00) H D 03/20/20 09:01 Testosterone Level 39.5 ng/dL (71.8-623) L 03/20/20 09:01 Assessment and Plan (1) Metastatic cancer to bone Overview: Seng is a 74 year old male with advanced prostate cancer with extensive bone metastasis diagnosed on 10/12/2019. He initially presented with rapidly progressive worsening whole body bone pain, weight loss and lower extremity muscle wasting in 06/2019. CT CAP scan on 09/28/2019 showed extensive sclerotic bone lesion affecting all visible bones as well as one left pelvic lymph node. PSA on 10/11/2019 was found to be 203.97 ng/ml. 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 He was started on Lupron 22.5 mg im q3m, 10/26/2019, and had taken Casodex 50 mg daily for 30 days to prevent flare. EBRT Zytega 1000 mg/d and prednisone 5 mg daily started on 03/06/2020 - Assessment: Patient started Zytiga about 2 weeks ago together with prednisone 5 mg once a day. Until now patient has tolerated very well. Patient was asking if he can change to Yonsa. I explained to the patient that Yonsa is a generic form of Zytiga. The effect is about the same. However he read some articles claiming that Yonsa is 80% better than abiraterone. I talked with him that if he wishes I can order Yonsa. Currently patient is getting the medication abiraterone for free. After a brief thought, he is comfortable continuing abiraterone/prednisone. Next we talked about the bone agent. Currently patient is undergoing tooth extraction. I talked with the patient if he is getting surgical procedures I would postpone the bone health agent therapy for now. Will continue monitoring laboratory tests every 2 weeks. After 2 months of treatment with Zytiga, I will repeat CT of the chest abdomen pelvis as well as bone scan to evaluate the response to the treatment. Plan: Cont Lupron 22.5 mg im q12w, next dose in 03/2020 Cont Zytiga 1000 mg daily Cont Pred 5 mg daily CBC,CMP in 2 weeks, RN visit only Xgeva injection to be started when tooth extraction wound heals. RTC on 04/13/2020, CBC, CMP, PSA, T
[2020-03-20 14:06] VITALS: BP 140/83; PULSE 72; RESP 18; TEMP 36.6; O2SAT 98
[2020-04-17 08:52] LABS: Add Manual Diff / Slide Review NO; Basophils Absolute Auto 0 /uL (0-100); Basophils Percent Auto 0.4 % (0-2); Eosinophils Absolute Auto 0 /uL (0-450); Eosinophils Percent Auto 0.3 % (2-4); Hematocrit 35.8 % (41-53); Lymphocytes Absolute Auto 400 /uL (1100-4500); Mean Corpuscular HGB Conc 33.5 % (30-36); Mean Corpuscular Hemoglobin 28.7 PG (26-34); Mean Corpuscular Volume 85.7 fL (80-100); Monocytes Absolute Auto 500 /uL (0-900); Monocytes Percent Auto 5.7 % (3-14); Neutrophils Absolute Auto 8000 /uL (1500-7000); Neutrophils Percent Auto 88.6 % (50-75); Platelet Count 255 X10^3/uL (150-400); Red Blood Cell Count 4.18 X10^6/uL (4.5-5.9); Red Cell Distribution Width 16.7 % (11.6-14.8); White Blood Cell Count 9.1 X10^3/uL (4.5-11.0)
[2020-04-17 09:12] LABS: Alanine Aminotransferase 28 IU/L (<50); Albumin 4.4 g/dL (3.5-5.0); Albumin Globulin Ratio 1.3 (1.0-2.8); Alkaline Phosphatase 1020 U/L (38-126); Aspartate Aminotransferase 29 IU/L (17-59); Bilirubin Total 0.6 mg/dL (0.2-1.3); Blood Urea Nitrogen 15 mg/dL (9-20); Calcium 10.1 mg/dL (8.4-10.2); Carbon Dioxide 35 mmol/L (22-32); Chloride 100 mmol/L (98-107); Estimated Glomerular Filt Rate > 60.0 mL/min (>60); Globulin 3.4 g/dL (1.7-4.1); Glucose 148 mg/dL (80-110); HEMOLYSIS < 15 (0-50); Potassium 4.5 mmol/L (3.4-5.1); Sodium 141 mmol/L (137-145); Total Protein 7.8 g/dL (6.3-8.2)
[2020-04-17 14:59] VITALS: BP 143/81; PULSE 77; RESP 16; TEMP 36.8; O2SAT 96
[2020-04-17] MEDS: LEUPROLIDE DEPOT [ELIGARD] 22.5 MG SYR SUBCUT (15:00)
[2020-04-17 15:50] VITALS: BP 140/78; PULSE 71; RESP 18; TEMP 36.6; O2SAT 95
--- NOTE | 2020-04-17 16:15 | P.PNONC_ITS ---
PN -Subjective Interval history: ID/CC: 74-year-old gentleman with advanced prostate cancer with extensive bone metastasis. HPI: Seng Becker is a 74 year old male. He was referred by Dr. Domenico Roldan for evaluation of metastatic cancer to the bone of unknown primary. Seng used to be a very active man. He was in [place] in June of 2019 when he developed left hip pain. Initially he thought he could overcome by more exercise. He went for physical therapy. However the left hip pain has gotten progressively worse especially in ?wrong position?. The pain can be as severe as 9/10 in severity when it is in the wrong position. In addition patient has noticed significant muscle wasting of the lower extremities especially the left side compared to the right side. He gradually was having problems ambulating and had to use crutches all the time. Patient has lost about 18 lb since then. While in [place], patient had a MRI of the lumbar spine and the pelvis on 09/21/2019. The MRI showed diffusely heterogeneous marrow suspicious for diffuse osseous metastatic disease. Other possibilities would include multiple myeloma or myeloproliferative disorders. He flew back to [facility] and on September 23, [address] Domenico Roldan who referred the patient to our [facility] for further evaluation. Dr. Domenico Roldan prescribed hydrocodone 5/325 every 4 hours on as-needed basis for pain control. On 09/28/2019, patient underwent CT chest abdomen and pelvis. The scan showed diffuse, heterogeneous sclerotic intra-osseous lesions throughout the visualized skeleton compatible with osseous metastasis. No acute compression fractures were noted. No evidence of pathological fractures. It also showed prominent left pelvic side wall lymph node measuring approximately 1.1 cm in short axis dimension. On 09/29/2019, he developed extreme pain and had to lie down on mattress on floor and was not able to get up. He chose no further investigation or treatment. He then decided to get into hospice care ([facility] For pain control, he was started on methadone. After CT scan of became available, I called and discussed with Kelley Rubin about check serum PSA level. On 10/11/2019, patient underwent laboratory test that showed PSA 203.97 ng/ml. On 10/12/2019, patient was evaluated by Dr. Roldan for pain management. Patient has chose to revoke hospice care. At the time, he was taking methadone every 12 hours, hydrocodone for breakthrough pain together with dexamethasone. Patient said that this regimen works well for the pain. Patient also was evaluated by [facility]. They have received lots of information as far as prostate cancer treatment is concerned. He was started on Casodex 50 mg once a day for 30 days and on 10/26/2019 patient was started on Lupron injection 22.5 mg im. On 12/29/[address]uca[address] Crawford agreed with the androgen deprivation therapy and hopefully rucaparib if the genetic testing for ZEFERINO positive. In addition, Dr. Machuca also discussed with the patient about possible radium 2-3 given the extensive bone metastasis without visceral metastasi On 11/09/2019, patient underwent bone scan at [facility] that showed extensive skeletal metastasis, through the axial and appendicular skeleton, with asymmetric greater involvement over the left femur compared to the right. The degree of isotope uptake in the bones was prominent, to the degree that no residual isotope was excreted through the urinary tract. On 01/18/2020, patient was evaluated by Dr. William Soliz. Dr. Soliz recommended a course of palliative radiation therapy directed at symptomatic bilateral hips/proximal femurs, with modification to include other sites depending on the appearance on treatment planning CT pelvic/femurs. Dr. William Soliz thought that because the patient has viable systemic treatment options, focused palliative external beam radiation therapy at this time was favored over systemic radionucleotide (radium 223) treatment. Patient has completed external beam radiotherapy Interval History: He started Zytega 2 weeks ago (03/06/2020) together with prednisone 5 mg daily. Overall, patient said that he has tolerated the medications relatively well. The main concern has been the fatigue and drowsiness. No nausea no vomiting. No diarrhea and no constipation. Patient recently has completed the dental workup and had clearance for use of Xgeva. Treatment summary Lupron 22.5 mg im q3m, 10/26/2019 - Casodex 50 mg daily x 30 days, 10/26/2019 Zytega 1000 mg daily 03/06/2020 - - Patient Self-Reported Symptoms SR Constitution: Fatigue/Malaise, Night Sweats SR ears, nose, mouth, throat issues: Difficulty swallowing SR respiratory issues: Shortness of breath SR Cardiovascular issues: Shortness of breath with activity or lying flat, Extreme swelling SR Skin issues: Skin color changes SR Gastrointestinal issues: Constipation SR Genitourinary issues: Frequent urination SR Musculoskeletal issues: Muscle weakness, Difficulty walking, Bone pain SR Neuro issues: Tremors or shaking SR Endocrine issues: Hot flashes - Additional ROS All systems PM: reviewed and no additional remarkable complaints except as stated Home Medications and Allergies Home Medications Medication Instructions Recorded Confirmed Type Prevnar 13 (PF) 0.5 ml IM X1 #1 ea 12/26/16 04/17/20 Rx Zostavax (PF) 0.5 ml SQ STAT #1 ml 12/26/16 04/17/20 Rx Cannibus 1 drp DAILY 09/28/19 04/17/20 History hydrocodone-acetaminophen 1 tab PRN PRN 09/28/19 04/17/20 History polyethylene glycol 3350 [Miralax] 17 g PO DAILY PRN 09/28/19 04/17/20 History ascorbic acid (vitamin C) [Vitamin 7,000 mg PO DAILY 10/19/19 04/17/20 History C] dexamethasone 4 mg PO DAILY 10/19/19 04/17/20 History magnesium oxide 400 mg PO DAILY 10/19/19 04/17/20 History methadone 5 mg PO Q8H 10/19/19 04/17/20 History Curapro 750 mg DAILY 12/07/19 04/17/20 History Vitamin D3 4,000 units DAILY 12/07/19 04/17/20 History calcium-vits Z3-K-Y9-minerals 2 tab PO BID 12/07/19 04/17/20 History [Bone Essentials] zinc 30 mg DAILY 01/20/20 04/17/20 History prednisone 5 mg PO BID #60 tab 01/31/20 04/17/20 Rx abiraterone 1,000 mg PO QAM #120 tab 02/14/20 04/17/20 Rx Allergies Allergy/AdvReac Type Severity Reaction Status Date / Time Penicillins [PENICILLINS] Allergy Severe ANAPHYLAXIS Unverified 10/29/17 13:08 CONTRAST DYE Allergy Severe HYPOTENSION Uncoded 10/29/17 13:08 Exam Vital signs: Vital Signs Temp Pulse Resp BP Pulse Ox 04/17/20 15:50 98 F 71 18 140/78 95 04/17/20 14:59 98.2 F 77 16 143/81 H 96 Intake and Output 04/17/20 04/17/20 04/17/20 07:59 15:59 23:59 Other: Weight 77 kg Patient Weight 04/17/20 23:59 Weight 77 kg Narrative: ECOG 1 Gen: WD, well nourished, NAD, pleasant and cooperative. Accompanied by his . HEENT: NCAT, EOMI, PERRLA, anicteric sclera. Respiratory: no use of accessary respiratory muscle. Neurological: AOx3, CN II-XII grossly intact. No focal motor or sensory deficit. Psychiatric: Normal affect, appropriate mood, no depression, no anxiety. Results - Labs Laboratory Last Values WBC 9.1 X10^3/uL (4.5-11.0) 04/17/20 08: RBC 4.18 X10^6/uL (4.5-5.9) L 04/17/20 08:31 Hgb 12.0 g/dL (13.5-17.5) L 04/17/20 08:31 Hct 35.8 % (41-53) L 04/17/20 08:31 MCV 85.7 fL (80-100) 04/17/20 08:31 MCH 28.7 PG (26-34) 04/17/20 08:31 MCHC 33.5 % (30-36) 04/17/20 08:31 RDW 16.7 % (11.6-14.8) H 04/17/20 08:31 Plt Count 255 X10^3/uL (150-400) 04/17/20 08:31 Neut % (Auto) 88.6 % (50-75) H 04/17/20 08:31 Lymph % (Auto) 5.0 % (25-40) L 04/17/20 08:31 [place] % (Auto) 5.7 % (3-14) 04/17/20 08:31 Eos % (Auto) 0.3 % (2-4) L 04/17/20 08:31 Baso % (Auto) 0.4 % (0-2) 04/17/20 08:31 Neut # (Auto) 8000 /uL (7172-6469) H 04/17/20 08:31 Lymph # (Auto) 400 /uL (6756-5476) L 04/17/20 08:31 [place] # (Auto) 500 /uL (0-900) 04/17/20 08:31 Eos # (Auto) 0 /uL (0-450) 04/17/20 08:31 Baso # (Auto) 0 /uL (0-100) 04/17/20 08:31 Sodium 141 mmol/L (137-145) 04/17/20 08:31 Potassium 4.5 mmol/L (3.4-5.1) 04/17/20 08:31 Chloride 100 mmol/L (98-107) 04/17/20 08:31 Carbon Dioxide 35 mmol/L (22-32) H 04/17/20 08:31 BUN 15 mg/dL (9-20) 04/17/20 08:31 Creatinine 0.75 mg/dL (0.66-1.25) 04/17/20 08:31 Estimated GFR > 60.0 mL/min (>60) 04/17/20 08:31 BUN/Creatinine Ratio 20.0 (6-22) 04/17/20 08:31 Glucose 148 mg/dL (80-110) H 04/17/20 08:31 Calcium 10.1 mg/dL (8.4-10.2) 04/17/20 08:31 Total Bilirubin 0.6 mg/dL (0.2-1.3) 04/17/20 08:31 AST 29 IU/L (17-59) 04/17/20 08:31 ALT 28 IU/L (<50) 04/17/20 08:31 Alkaline Phosphatase 1020 U/L (38-126) H 04/17/20 08:31 Total Protein 7.8 g/dL (6.3-8.2) 04/17/20 08:31 Albumin 4.4 g/dL (3.5-5.0) 04/17/20 08:31 Globulin 3.4 g/dL (1.7-4.1) 04/17/20 08:31 Albumin/Globulin Ratio 1.3 (1.0-2.8) 04/17/20 08:31 Prostate Specific Ag 74.7 ng/mL (0.10-4.00) H D 03/20/20 09:01 Testosterone Level 39.5 ng/dL (71.8-623) L 03/20/20 09:01 Assessment and Plan (1) Metastatic cancer to bone Overview: Seng is a 74 year old male with advanced prostate cancer with extensive bone metastasis diagnosed on 10/12/2019. He initially presented with rapidly progressive worsening whole body bone pain, weight loss and lower extremity muscle wasting in 06/2019. CT CAP scan on 09/28/2019 showed extensive sclerotic bone lesion affecting all visible bones as well as one left pelvic lymph node. PSA on 10/11/2019 was found to be 203.97 ng/ml. 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 He was started on Lupron 22.5 mg im q3m, 10/26/2019, and had taken Casodex 50 mg daily for 30 days to prevent flare. EBRT Zytega 1000 mg/d and prednisone 5 mg daily started on 03/06/2020 - Assessment: First of all I reviewed the lab results with the patient. Clearly the PSA level has been rising quickly despite the use of Lupron and abiraterone. 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 I talked with him that he he has been on treatment with abiraterone for about 2 months. I will obtain a complete repeat staging studies including CT chest abdomen and pelvis and bone scan. Depending on the results we will discuss about further treatment options. Today, we discussed briefly about possible downstream options. I talked about switching the abiraterone to another androgen receptor pathway targeting agents, for example, Xtandi, apalutamide or the newer darolutamide. Other options include chemotherapy (docetaxel or carbazetaxel), or radioactive lutetium 177 etc.. Since patient has already had dental clearance, I will proceed with treatment with Xgeva once a month. Patient voiced understanding. Plan: Cont Lupron 22.5 mg im q12w, next dose in 03/2020 Cont Zytiga 1000 mg daily Cont Pred 5 mg daily Denosomab 120 mg subQ qM, starting on 04/20/2020 CT CAP w/contrast in 2 weeks Bone scan in 2 weeks RTC after the scans
--- NOTE | 2020-04-18 09:34 | ONC.SCHED ---
Patient does not want to do the BMBX and said they voiced that with Dr. Perez. I will let triage know as CT scan is also ordered with contrast and patient is allergic.
--- NOTE | 2020-04-18 10:42 | ONC.MSW ---
Description: Dental Clearance Activity: Received letter from pt's dentist clearing him for treatment. Placed in scanning.
--- NOTE | 2020-04-25 14:36 | ONC.SCHED ---
Gave patient schedule for CT and NM scan which is for 05/15/20 check in time 9:10AM clear liquids only after 7:30AM. Gave this info to patient.
--- NOTE | 2020-04-26 16:24 | PC.NURSE ---
PATIENT CALLED WISHING TO CHANGE APPT FOR XGEVA HE DOES NOT FEEL UP TO THE FERRY TRAVEL. HE STATED HE HAS BEEN HAVING INCREASED/CONSTANT BONE PAIN AND IN BACK AND HIP UP TO LEVEL 9. DR. MORRIS HAS INCREASED FENTANYL TO 25MG. HE IS ALSO USING VICODIN, METHADONE AND DEX HE SAYS PAIN CONSTANT ON THE MEDS BUT A LEVEL OF 6 FEELS OK. HOT FLASHES CAUSING HIM OFTEN TO SWEAT PROFUSELY. APPT FOR XGEVA CHANGED TO 05/01, REQUEST MADE TO DR SEVERINO TO REENTER PSA AND XGEVA ORDER. PATIENT/ ADVISED TO CALL 911 IF PATIENT DEVELOPS CHEST PAIN, SOB AND TO CALL IN HERE IF CONCERNS/QUESTIONS.
[2020-05-01 12:17] VITALS: BP 177/84; PULSE 81; RESP 16; TEMP 36.4; O2SAT 95
[2020-05-01 12:19] LABS: Add Manual Diff / Slide Review NO; Basophils Absolute Auto 0 /uL (0-100); Basophils Percent Auto 0.3 % (0-2); Eosinophils Absolute Auto 0 /uL (0-450); Hematocrit 31.1 % (41-53); Hemoglobin 10.3 g/dL (13.5-17.5); Lymphocytes Absolute Auto 600 /uL (1100-4500); Lymphocytes Percent Auto 4.7 % (25-40); Mean Corpuscular HGB Conc 33.1 % (30-36); Mean Corpuscular Hemoglobin 27.9 PG (26-34); Mean Corpuscular Volume 84.4 fL (80-100); Monocytes Absolute Auto 500 /uL (0-900); Neutrophils Absolute Auto 10900 /uL (1500-7000); Platelet Count 393 X10^3/uL (150-400); Red Blood Cell Count 3.68 X10^6/uL (4.5-5.9); Red Cell Distribution Width 16.9 % (11.6-14.8)
[2020-05-01 12:32] LABS: Alanine Aminotransferase 16 IU/L (<50); Albumin 4.1 g/dL (3.5-5.0); Albumin Globulin Ratio 1.3 (1.0-2.8); Aspartate Aminotransferase 33 IU/L (17-59); BUN Creatinine Ratio 28.8 (6-22); Bilirubin Total 0.5 mg/dL (0.2-1.3); Blood Urea Nitrogen 19 mg/dL (9-20); Calcium 9.3 mg/dL (8.4-10.2); Carbon Dioxide 31 mmol/L (22-32); Chloride 101 mmol/L (98-107); Estimated Glomerular Filt Rate > 60.0 mL/min (>60); Globulin 3.1 g/dL (1.7-4.1); Glucose 176 mg/dL (80-110); HEMOLYSIS < 15 (0-50); Sodium 138 mmol/L (137-145); Total Protein 7.2 g/dL (6.3-8.2)
[2020-05-01 12:38] LABS: Alkaline Phosphatase 1283 U/L (38-126)
[2020-05-01 13:05] LABS: Testosterone 9.49 ng/dL (71.8-623)
[2020-05-01] MEDS: DENOSUMAB 120 MG/1.7 ML VIAL SUBCUT (13:08)
--- NOTE | 2020-05-01 13:14 | PC.NURSE ---
Pain control/dex Patient here today for his denosumab shot. Patient with many questions concerning dexamethasone/prednisone/pain medication use. Juanita Landers RN triage aware and discussing patient questions with Dr. Perez. Juanita Landers Rn will be fololowing up answers to patient questions with patient and patient spouse.
[2020-05-01 13:45] LABS: Prostate Specific Antigen 273 ng/mL (0.10-4.00)
--- NOTE | 2020-05-01 16:15 | PC.NURSE ---
PATIENT HERE TODAY FOR LABS AND DENOSUMAB. HE REPORTS OVER LAST COUPLE WEEKS BEING INCAPACITATED FOR PERIODS OF TWO OR THREE DAYS AT A TIME, UNABLE TO EVEN ROLL OVER DUE TO PAIN. HE IS USING UP TO 10 VICODIN PER DAY WELL METHADONE AND FENTANYL PATCHES WHICH DR MANDY MORRIS ON [place] IS MANAGING WITH HIM. PATIENT DECIDED ON HIS OWN TO INCREASE HIS DEXAMETHASONE TO 4 MG BID FROM ONCE A DAY. HE STATES THAT ALTHO THE PREDNISONE WAS ORDERED BID HE HAS ONLY BEEN TAKING IT QD. THIS NURSE STATED THAT PER DR SEVERINO HE SHOULD EITHER CONTINUE WITH THE PREDNISONE AND DEX PRESCRIBED OR TRY DR SEVERINO'S INSTRUCTION OF TODAY (BEING STOP PREDNISONE BUT CONTINUE DEXAMETHASONE AT 1MG BID). PATIENT WAS NOT HAPPY WITH THIS SOLUTION STATING HE FEELS SO MUCH BETTER NOW ON THE 4MG BID OF DEX BECAUSE HE BELIEVES HE HAS SPINAL CORD COMPRESSION. THIS NURSE EXPLAINED SIDE EFFECT DANGER AND PROMISED TO HAVE DR SEVERINO SPEAK WITH HIS PCP ABOUT THE PAIN CONTROL AND HOW TO MOVE FORWARD WITH THE STEROIDS. IMAGING WILL BE DONE MAY 15 TO FURTHER CLARIFY THE ISSUE. DR SEVERINO REQUESTED TO CALL DR MANDY MORRIS AT [phone] AND INFORM HIV/AIDS CARE NURSE OF FURTHER CHANGES.
--- NOTE | 2020-05-09 15:14 | PC.NURSE ---
This RN called pt and left message on his cell phone. Also tried home phone, no answer.
--- NOTE | 2020-05-10 16:07 | PC.NURSE ---
PAIN SITUATION BETTER PER PATIENT REPORTED ON TELEPHONE. HE HAS BEEN ABLE TO MOVE AROUND DAILY WITH PAIN STILL GETTING UP TO A 4. HE IS NOW ON FENTANLY 40 MCG, VICODIN 4 TIMES PER DAY AND METHADONE. HE STATES HE IS TAKING DEX BID. THIS NURSE REMINDED HIM THAT DR SEVERINO HAD NOT RECOMMENDED THIS IN LAST COMMUNICATION BUT THAT HE SHOULD TALK ABOUT THIS WITH DR SEVERINO AT APPT NEXT FRIDAY. THIS NURSE ALSO REPORTED TO PATIENT THAT DR SEVERINO IS IN PROCESS OF REACHING DR MANDY MORRIS BY TELEPHONE TO DISCUSS PATIENT'S PAIN MANAGEMENT.
--- NOTE | 2020-05-11 17:42 | PC.NURSE ---
THIS NURSE CALLED PATIENT TO INFORM HIM THAT DR SEVERINO HAS ORDERED LABS TO BE DONE ON 05/18 BEFORE HIS F/U VISIT.
[2020-05-18 09:18] LABS: Add Manual Diff / Slide Review NO; Basophils Absolute Auto 0 /uL (0-100); Basophils Percent Auto 0.3 % (0-2); Eosinophils Absolute Auto 0 /uL (0-450); Eosinophils Percent Auto 0.1 % (2-4); Hematocrit 31.5 % (41-53); Hemoglobin 10.2 g/dL (13.5-17.5); Lymphocytes Absolute Auto 500 /uL (1100-4500); Mean Corpuscular HGB Conc 32.4 % (30-36); Mean Corpuscular Hemoglobin 26.9 PG (26-34); Mean Corpuscular Volume 82.9 fL (80-100); Monocytes Absolute Auto 700 /uL (0-900); Monocytes Percent Auto 6.1 % (3-14); Neutrophils Absolute Auto 10300 /uL (1500-7000); Neutrophils Percent Auto 89.5 % (50-75); Platelet Count 273 X10^3/uL (150-400); Red Blood Cell Count 3.79 X10^6/uL (4.5-5.9); Red Cell Distribution Width 18.2 % (11.6-14.8); White Blood Cell Count 11.6 X10^3/uL (4.5-11.0)
[2020-05-18 09:32] LABS: Alanine Aminotransferase 12 IU/L (<50); Albumin 3.7 g/dL (3.5-5.0); Albumin Globulin Ratio 1.3 (1.0-2.8); Aspartate Aminotransferase 39 IU/L (17-59); BUN Creatinine Ratio 38.1 (6-22); Bilirubin Total 0.5 mg/dL (0.2-1.3); Blood Urea Nitrogen 16 mg/dL (9-20); Calcium 8.1 mg/dL (8.4-10.2); Carbon Dioxide 27 mmol/L (22-32); Chloride 101 mmol/L (98-107); Estimated Glomerular Filt Rate > 60.0 mL/min (>60); Globulin 2.8 g/dL (1.7-4.1); Glucose 140 mg/dL (80-110); Potassium 4.5 mmol/L (3.4-5.1); Sodium 134 mmol/L (137-145); Total Protein 6.5 g/dL (6.3-8.2)
[2020-05-18 09:39] LABS: Alkaline Phosphatase 1511 U/L (38-126)
[2020-05-18 10:06] LABS: Testosterone 15.3 ng/dL (71.8-623)
[2020-05-18 10:44] VITALS: BP 142/85; PULSE 74; RESP 18; TEMP 36.4; O2SAT 96
--- NOTE | 2020-05-18 11:06 | P.PNONC_ITS ---
PN -Subjective Interval history: ID/CC: 74-year-old gentleman with advanced prostate cancer with extensive bone metastasis. HPI: Seng Becker is a 74 year old male. He was referred by Dr. Domenico Roldan for evaluation of metastatic cancer to the bone of unknown primary. Seng used to be a very active man. He was in [place] in June of 2019 when he developed left hip pain. Initially he thought he could overcome by more exercise. He went for physical therapy. However the left hip pain has gotten progressively worse especially in ?wrong position?. The pain can be as severe as 9/10 in severity when it is in the wrong position. In addition patient has noticed significant muscle wasting of the lower extremities especially the left side compared to the right side. He gradually was having problems ambulating and had to use crutches all the time. Patient has lost about 18 lb since then. While in [place], patient had a MRI of the lumbar spine and the pelvis on 09/21/2019. The MRI showed diffusely heterogeneous marrow suspicious for diffuse osseous metastatic disease. Other possibilities would include multiple myeloma or myeloproliferative disorders. He flew back to [facility] and on September 23, [address] Domenico Roldan who referred the patient to our [facility] for further evaluation. Dr. Domenico Roldan prescribed hydrocodone 5/325 every 4 hours on as-needed basis for pain control. On 09/28/2019, patient underwent CT chest abdomen and pelvis. The scan showed diffuse, heterogeneous sclerotic intra-osseous lesions throughout the visualized skeleton compatible with osseous metastasis. No acute compression fractures were noted. No evidence of pathological fractures. It also showed prominent left pelvic side wall lymph node measuring approximately 1.1 cm in short axis dimension. On 09/29/2019, he developed extreme pain and had to lie down on mattress on floor and was not able to get up. He chose no further investigation or treatment. He then decided to get into hospice care ([facility] For pain control, he was started on methadone. After CT scan of became available, I called and discussed with Kelley Rubin about check serum PSA level. On 10/11/2019, patient underwent laboratory test that showed PSA 203.97 ng/ml. On 10/12/2019, patient was evaluated by Dr. Roldan for pain management. Patient has chose to revoke hospice care. At the time, he was taking methadone every 12 hours, hydrocodone for breakthrough pain together with dexamethasone. Patient said that this regimen works well for the pain. Patient also was evaluated by [facility]. They have received lots of information as far as prostate cancer treatment is concerned. He was started on Casodex 50 mg once a day for 30 days and on 10/26/2019 patient was started on Lupron injection 22.5 mg im. On 12/29/[address] Crawford agreed with the androgen deprivation therapy and hopefully rucaparib if the genetic testing for ZEFERINO positive. In addition, Dr. Machuca also discussed with the patient about possible radium 2-3 given the extensive bone metastasis without visceral metastasi On 11/09/2019, patient underwent bone scan at [facility] that showed extensive skeletal metastasis, through the axial and appendicular skeleton, with asymmetric greater involvement over the left femur compared to the right. The degree of isotope uptake in the bones was prominent, to the degree that no residual isotope was excreted through the urinary tract. On 01/18/2020, patient was evaluated by Dr. William Soliz. Dr. Soliz recommended a course of palliative radiation therapy directed at symptomatic bilateral hips/proximal femurs, with modification to include other sites depending on the appearance on treatment planning CT pelvic/femurs. Dr. William Soliz thought that because the patient has viable systemic treatment options, focused palliative external beam radiation therapy at this time was favored over systemic radionucleotide (radium 223) treatment. Patient has completed external beam radiotherapy He started Zytega on 03/06/2020) together with prednisone 5 mg daily. Interval History: Overall he has tolerated Zytiga very well. Patient recently underwent CT chest abdomen pelvis and bone scan on 05/15/2020. The bone scan showed widespread osseous metastatic disease, with more conspicuous or new bilateral mid humeral lesions. Improved appearance and decreased uptake at the bilateral proximal femur since the previous study. There is also decreased tracer uptake and the acetabuli bilaterally. The CT scan showed extensive mixed blastic and lytic bone lesions consistent with widespread [place] metastasis. It also showed resolution of mildly enlarged left pelvic sidewall lymph node. A small fat containing right inguinal hernia was noted. Clinically, patient is complaining of whole-body bone pain especially lower back pain. Patient has to be on pain medications all the time. He is now on fentanyl patch 50 mcg every 72 hours on top of hydrocodone for breakthrough pain control. He said if he missed any doses, the pain sometimes can be unbearable. Treatment summary Lupron 22.5 mg im q3m, 10/26/2019 - Casodex 50 mg daily x 30 days, 10/26/2019 Zytega 1000 mg daily 03/06/2020 - - Patient Self-Reported Symptoms SR Constitution: Fatigue/Malaise, Night Sweats SR eye issues: Vision changes SR ears, nose, mouth, throat issues: Difficulty swallowing SR respiratory issues: Shortness of breath SR Cardiovascular issues: Shortness of breath with activity or lying flat, Extreme swelling SR Skin issues: Skin color changes SR Gastrointestinal issues: Constipation, Heartburn SR Genitourinary issues: Frequent urination SR Musculoskeletal issues: Muscle weakness, Back or neck pain, Cold hands or feet, Difficulty walking SR Neuro issues: Tremors or shaking SR Endocrine issues: Excessive urination - Additional ROS All systems PM: reviewed and no additional remarkable complaints except as stated Home Medications and Allergies Home Medications Medication Instructions Recorded Confirmed Type Prevnar 13 (PF) 0.5 ml IM X1 #1 ea 12/26/16 05/18/20 Rx Zostavax (PF) 0.5 ml SQ STAT #1 ml 12/26/16 04/17/20 Rx Cannibus 1 drp DAILY 09/28/19 05/18/20 History hydrocodone-acetaminophen 1 tab PRN PRN 09/28/19 05/18/20 History polyethylene glycol 3350 [Miralax] 17 g PO DAILY PRN 09/28/19 05/18/20 History ascorbic acid (vitamin C) [Vitamin 7,000 mg PO DAILY 10/19/19 05/18/20 History C] dexamethasone 4 mg PO BID 10/19/19 05/18/20 History magnesium oxide 400 mg PO DAILY 10/19/19 05/18/20 History methadone 5 mg PO Q8H 10/19/19 05/18/20 History Curapro 750 mg DAILY 12/07/19 05/18/20 History Vitamin D3 4,000 units DAILY 12/07/19 05/18/20 History calcium-vits F8-S-Q7-minerals 2 tab PO BID 12/07/19 05/18/20 History [Bone Essentials] zinc 30 mg DAILY 01/20/20 04/17/20 History abiraterone 1,000 mg PO QAM #120 tab 02/14/20 05/18/20 Rx Pycnogenol 100 mg BID 04/18/20 05/18/20 History Allergies Allergy/AdvReac Type Severity Reaction Status Date / Time Penicillins [PENICILLINS] Allergy Severe ANAPHYLAXIS Verified 05/01/20 13:07 Latex, Natural Rubber AdvReac Mild Rash Verified 05/01/20 13:07 CONTRAST DYE Allergy Severe HYPOTENSION Uncoded 10/29/17 13:08 Exam Vital signs: Vital Signs Temp Pulse Resp BP Pulse Ox 05/18/20 10:44 97.6 F 74 18 142/85 H 96 Intake and Output 05/17/20 05/18/20 05/18/20 23:59 07:59 15:59 Other: Weight 72 kg Patient Weight 05/18/20 23:59 Weight 72 kg Narrative: ECOG 1 Gen: WD, well nourished, NAD, pleasant and cooperative. Accompanied by his . HEENT: NCAT, EOMI, PERRLA, anicteric sclera. Respiratory: no use of accessary respiratory muscle. Neurological: AOx3, CN II-XII grossly intact. No focal motor or sensory deficit. Psychiatric: Normal affect, appropriate mood, no depression, no anxiety. Results - Labs Laboratory Last Values WBC 11.6 X10^3/uL (4.5-11.0) H 05/18/20 09:04 RBC 3.79 X10^6/uL (4.5-5.9) L 05/18/20 09:04 Hgb 10.2 g/dL (13.5-17.5) L 05/18/20 09:04 Hct 31.5 % (41-53) L 05/18/20 09:04 MCV 82.9 fL (80-100) 05/18/20 09:04 MCH 26.9 PG (26-34) 05/18/20 09:04 MCHC 32.4 % (30-36) 05/18/20 09:04 RDW 18.2 % (11.6-14.8) H 05/18/20 09:04 Plt Count 273 X10^3/uL (150-400) 05/18/20 09:04 Neut % (Auto) 89.5 % (50-75) H 05/18/20 09:04 Lymph % (Auto) 4.0 % (25-40) L 05/18/20 09:04 [place] % (Auto) 6.1 % (3-14) 05/18/20 09:04 Eos % (Auto) 0.1 % (2-4) L 05/18/20 09:04 Baso % (Auto) 0.3 % (0-2) 05/18/20 09:04 Neut # (Auto) 56537 /uL (3170-0775) H 05/18/20 09:04 Lymph # (Auto) 500 /uL (5844-2083) L 05/18/20 09:04 [place] # (Auto) 700 /uL (0-900) 05/18/20 09:04 Eos # (Auto) 0 /uL (0-450) 05/18/20 09:04 Baso # (Auto) 0 /uL (0-100) 05/18/20 09:04 Sodium 134 mmol/L (137-145) L 05/18/20 09:04 Potassium 4.5 mmol/L (3.4-5.1) 05/18/20 09:04 Chloride 101 mmol/L (98-107) 05/18/20 09:04 Carbon Dioxide 27 mmol/L (22-32) 05/18/20 09:04 BUN 16 mg/dL (9-20) 05/18/20 09:04 Creatinine 0.42 mg/dL (0.66-1.25) L 05/18/20 09:04 Estimated GFR > 60.0 mL/min (>60) 05/18/20 09:04 BUN/Creatinine Ratio 38.1 (6-22) H 05/18/20 09:04 Glucose 140 mg/dL (80-110) H 05/18/20 09:04 Calcium 8.1 mg/dL (8.4-10.2) L 05/18/20 09:04 Total Bilirubin 0.5 mg/dL (0.2-1.3) 05/18/20 09:04 AST 39 IU/L (17-59) 05/18/20 09:04 ALT 12 IU/L (<50) 05/18/20 09:04 Alkaline Phosphatase 1511 U/L (38-126) H 05/18/20 09:04 Total Protein 6.5 g/dL (6.3-8.2) 05/18/20 09:04 Albumin 3.7 g/dL (3.5-5.0) 05/18/20 09:04 Globulin 2.8 g/dL (1.7-4.1) 05/18/20 09:04 Albumin/Globulin Ratio 1.3 (1.0-2.8) 05/18/20 09:04 Prostate Specific Ag 379 ng/mL (0.10-4.00) H D 05/18/20 09:04 Testosterone Level 15.3 ng/dL (71.8-623) L 05/18/20 09:04 Assessment and Plan (1) Metastatic cancer to bone Overview: Seng is a 74 year old male with advanced prostate cancer with extensive bone metastasis diagnosed on 10/12/2019. He initially presented with rapidly progressive worsening whole body bone pain, weight loss and lower extremity muscle wasting in 06/2019. CT CAP scan on 09/28/2019 showed extensive sclerotic bone lesion affecting all visible bones as well as one left pelvic lymph node. PSA on 10/11/2019 was found to be 203.97 ng/ml. 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 He was started on Lupron 22.5 mg im q3m, 10/26/2019, and had taken Casodex 50 mg daily for 30 days to prevent flare. EBRT Zytega 1000 mg/d and prednisone 5 mg daily started on 03/06/2020 - Assessment: Today I reviewed the lab results with the patient. Clearly the PSA level continues to increase despite the use of the current treatment including Lupron Zytiga. I also reviewed the bone scan as well as the CT scan that showed mixed response to the treatment. There are areas that showed improvement while there are areas that showed worsening. Overall given the dramatically increased PSA level and clinically significant bone pain, I think his disease is progressing. Today, once again I discussed with the patient about variety of different options. I talked with them again about the utility of chemotherapy. Talked with them that the sooner he uses the chemotherapy, the more benefit he will gets. Other options including Xtandi, apalutamide or the newer darolutamide. Patient has a germline ZEFERINO mutation. Based on guidelines, he is also a potential candidate for olaparib treatment. Patient said that he is going to do some investigation and will call us about his decision. I did not set up any follow-up appointment at this point pending his phone call. Plan: Cont Lupron 22.5 mg im q12w, next dose in 03/2020 Cont Zytiga 1000 mg daily Cont Pred 5 mg daily Cont Denosomab 120 mg subQ qM, starting on 04/20/2020 Patient will call about his decision regarding chemotherapy vs olaparib
[2020-05-18 11:29] LABS: HEMOLYSIS 18 (0-50); Prostate Specific Antigen 379 ng/mL (0.10-4.00)
--- NOTE | 2020-05-18 11:50 | ONC.SCHED ---
Patient will call to schedule fup per Dr. Perez. Patient is scheduled for fup and Lupron in June but they will need another fup before then, they will call for that.
[2020-06-01 08:56] LABS: Add Manual Diff / Slide Review NO; Basophils Absolute Auto 0 /uL (0-100); Basophils Percent Auto 0.4 % (0-2); Eosinophils Absolute Auto 100 /uL (0-450); Eosinophils Percent Auto 0.6 % (2-4); Hematocrit 30.3 % (41-53); Hemoglobin 9.9 g/dL (13.5-17.5); Lymphocytes Absolute Auto 600 /uL (1100-4500); Lymphocytes Percent Auto 5.8 % (25-40); Mean Corpuscular HGB Conc 32.7 % (30-36); Mean Corpuscular Volume 82.6 fL (80-100); Monocytes Absolute Auto 700 /uL (0-900); Monocytes Percent Auto 6.1 % (3-14); Neutrophils Absolute Auto 9400 /uL (1500-7000); Neutrophils Percent Auto 87.1 % (50-75); Platelet Count 266 X10^3/uL (150-400); Red Blood Cell Count 3.66 X10^6/uL (4.5-5.9); Red Cell Distribution Width 19.2 % (11.6-14.8); White Blood Cell Count 10.8 X10^3/uL (4.5-11.0)
[2020-06-01 09:15] LABS: Alanine Aminotransferase 16 IU/L (<50); Albumin 3.9 g/dL (3.5-5.0); Albumin Globulin Ratio 1.3 (1.0-2.8); Aspartate Aminotransferase 28 IU/L (17-59); BUN Creatinine Ratio 39.1 (6-22); Bilirubin Total 0.3 mg/dL (0.2-1.3); Blood Urea Nitrogen 18 mg/dL (9-20); Calcium 8.3 mg/dL (8.4-10.2); Carbon Dioxide 31 mmol/L (22-32); Chloride 101 mmol/L (98-107); Estimated Glomerular Filt Rate > 60.0 mL/min (>60); Glucose 149 mg/dL (80-110); HEMOLYSIS < 15 (0-50); Potassium 4.5 mmol/L (3.4-5.1); Sodium 135 mmol/L (137-145); Total Protein 6.9 g/dL (6.3-8.2)
[2020-06-01 09:21] LABS: Alkaline Phosphatase 1554 U/L (38-126)
[2020-06-01 09:48] LABS: Testosterone 9.07 ng/dL (71.8-623)
[2020-06-01 10:28] LABS: Prostate Specific Antigen 406 ng/mL (0.10-4.00)
[2020-06-01] MEDS: DENOSUMAB 120 MG/1.7 ML VIAL SUBCUT (13:23)
--- NOTE | 2020-06-01 13:33 | PHA.NOTE ---
MD Gaspar giving Xgeva with Ca 8.3
[2020-06-22 14:52] LABS: Alanine Aminotransferase 22 IU/L (<50); Albumin 3.9 g/dL (3.5-5.0); Albumin Globulin Ratio 1.3 (1.0-2.8); Alkaline Phosphatase 1011 U/L (38-126); Aspartate Aminotransferase 27 IU/L (17-59); Bilirubin Total 0.4 mg/dL (0.2-1.3); Blood Urea Nitrogen 24 mg/dL (9-20); Carbon Dioxide 31 mmol/L (22-32); Chloride 103 mmol/L (98-107); Estimated Glomerular Filt Rate > 60.0 mL/min (>60); Globulin 2.9 g/dL (1.7-4.1); Glucose 135 mg/dL (80-110); HEMOLYSIS < 15 (0-50); Hematocrit 28.4 % (41-53); Hemoglobin 9.3 g/dL (13.5-17.5); Mean Corpuscular HGB Conc 32.7 % (30-36); Mean Corpuscular Hemoglobin 27.2 PG (26-34); Platelet Count 182 X10^3/uL (150-400); Red Blood Cell Count 3.42 X10^6/uL (4.5-5.9); Red Cell Distribution Width 22.8 % (11.6-14.8); Sodium 137 mmol/L (137-145); Total Protein 6.8 g/dL (6.3-8.2); White Blood Cell Count 6.7 X10^3/uL (4.5-11.0)
[2020-06-22 14:56] LABS: Add Manual Diff / Slide Review YES
[2020-06-22 15:18] LABS: Anisocytosis 2+; Neutrophils Absolute Manual 4891 /uL (3000-5900); Nucleated Red Blood Cells 4 #/Diff; Polychromasia 1+; Total Cells Counted 100
[2020-06-22 15:23] LABS: Testosterone 6.19 ng/dL (71.8-623)
[2020-06-22 16:45] LABS: Prostate Specific Antigen 404 ng/mL (0.10-4.00)
--- NOTE | 2020-06-22 17:41 | PC.NURSE ---
GUARDANT 360 PERIPHERAL BLOOD DRAW DONE TODAY AND SENT PER [facility] [employer].
[2020-07-06 09:54] VITALS: BP 153/73; PULSE 72; RESP 18; TEMP 36.3; O2SAT 96
--- NOTE | 2020-07-06 09:56 | P.PNONC_ITS ---
PN -Subjective Interval history: ID/CC: 75-year-old gentleman with advanced prostate cancer with extensive bone metastasis. HPI: Seng Becker is a 75 year old male. He was referred by Dr. Domenico Roldan for evaluation of metastatic cancer to the bone of unknown primary. Seng used to be a very active man. He was in [place] in June of 2019 when he developed left hip pain. Initially he thought he could overcome by more exercise. He went for physical therapy. However the left hip pain has gotten progressively worse especially in ?wrong position?. The pain can be as severe as 9/10 in severity when it is in the wrong position. In addition patient has noticed significant muscle wasting of the lower extremities especially the left side compared to the right side. He gradually was having problems ambulating and had to use crutches all the time. Patient has lost about 18 lb since then. While in [place], patient had a MRI of the lumbar spine and the pelvis on 09/21/2019. The MRI showed diffusely heterogeneous marrow suspicious for diffuse osseous metastatic disease. Other possibilities would include multiple myeloma or myeloproliferative disorders. He flew back to [facility] and on September 23, [address] Domenico Roldan who referred the patient to our [facility] for further evaluation. Dr. Domenico Roldan prescribed hydrocodone 5/325 every 4 hours on as-needed basis for pain control. On 09/28/2019, patient underwent CT chest abdomen and pelvis. The scan showed diffuse, heterogeneous sclerotic intra-osseous lesions throughout the visualized skeleton compatible with osseous metastasis. No acute compression fractures were noted. No evidence of pathological fractures. It also showed prominent left pelvic side wall lymph node measuring approximately 1.1 cm in short axis dimension. On 09/29/2019, he developed extreme pain and had to lie down on mattress on floor and was not able to get up. He chose no further investigation or treatment. He then decided to get into hospice care ([facility]). For pain control, he was started on methadone. After CT scan of became available, I called and discussed with Kelley Rubin about check serum PSA level. On 10/11/2019, patient underwent laboratory test that showed PSA 203.97 ng/ml. On 10/12/2019, patient was evaluated by Dr. Roldan for pain management. Patient has chose to revoke hospice care. At the time, he was taking methadone every 12 hours, hydrocodone for breakthrough pain together with dexamethasone. Patient said that this regimen works well for the pain. Patient also was evaluated by [facility]. They have received lots of information as far as prostate cancer treatment is concerned. He was started on Casodex 50 mg once a day for 30 days and on 10/26/2019 patient was started on Lupron injection 22.5 mg im. On 12/29/[address] Crawford agreed with the androgen deprivation therapy and hopefully rucaparib if the genetic testing for ZEFERINO positive. In addition, Dr. Machuca also discussed with the patient about possible radium 2-3 given the extensive bone metastasis without visceral metastasi On 11/09/2019, patient underwent bone scan at [facility] that showed extensive skeletal metastasis, through the axial and appendicular skeleton, with asymmetric greater involvement over the left femur compared to the right. The degree of isotope uptake in the bones was prominent, to the degree that no residual isotope was excreted through the urinary tract. On 01/18/2020, patient was evaluated by Dr. William Soliz. Dr. Soliz recommended a course of palliative radiation therapy directed at symptomatic bilateral hips/proximal femurs, with modification to include other sites depending on the appearance on treatment planning CT pelvic/femurs. Dr. William Soliz thought that because the patient has viable systemic treatment options, focused palliative external beam radiation therapy at this time was favored over systemic radionucleotide (radium 223) treatment. Patient has completed external beam radiotherapy He started Zytega on 03/06/2020) together with prednisone 5 mg daily. The patient underwent CT chest abdomen pelvis and bone scan on 05/15/2020. The CT scan showed extensive mixed blastic and lytic bone lesions consistent with widespread osseous metastasis. It also showed resolution of mildly enlarged left pelvic sidewall lymph node. A small fat containing right inguinal hernia was noted. The bone scan showed widespread osseous metastatic disease, with more conspicuous or new bilateral mid humeral lesions. Improved appearance and decreased uptake at the bilateral proximal femur since the previous study. There is also decreased tracer uptake and the acetabuli bilaterally. Interval History: Seng came in here today accompanied by his . Clinically, he is declining in his functional status. He has shown significant swelling of his face and his legs. He looked at the product label of Lupron and decided that the swelling is caused by the injection of Lupron, and he would like to stop. He is now taking Zytega and Dexamethosone and has tolerated well. He is complaining of lots of bone pain. He is now using methadone and fentanyl patch for pain control. He has noticed that oxycodone did not work, and hydrocodone works the best. On 06/09/2020, he had a video visit with Jesus Davis of [facility]. Options including enzalutamide, radium-223, docetaxel, cabazitaxel and olaparib were discussed with the patient. Dr Sharma did not think that enzalutamide would be very useful as possible cross resistance with abiraterone. Given that the patient has bone metastasis only, Dr. Sharma recommended treatment with radium-223. Additionall, chemotherapy with docetaxel or cabazitaxel could be used and may lead to rapid response. Dr. Sharma would not recommend olaparib because patients with ZEFERINO mutation did not seem to benefit much in the PROfound trial. Seng and his both expressed their strong opinion against the use of chemotherapy. He said that from their interaction with patients who have used chemotherapy, none of them have had good experience. Treatment summary Lupron 22.5 mg im q3m, 10/26/2019 - Casodex 50 mg daily x 30 days, 10/26/2019 Zytega 1000 mg daily 03/06/2020 - - Patient Self-Reported Symptoms SR Constitution: Fatigue/Malaise, Night Sweats SR eye issues: Vision changes SR ears, nose, mouth, throat issues: Difficulty swallowing SR respiratory issues: Shortness of breath SR Cardiovascular issues: Shortness of breath with activity or lying flat, Extreme swelling SR Skin issues: Skin color changes SR Gastrointestinal issues: Constipation, Heartburn SR Genitourinary issues: Frequent urination SR Musculoskeletal issues: Muscle weakness, Back or neck pain, Cold hands or feet, Difficulty walking SR Neuro issues: Tremors or shaking SR Endocrine issues: Excessive urination - Additional ROS All systems PM: reviewed and no additional remarkable complaints except as stated Home Medications and Allergies Home Medications Medication Instructions Recorded Confirmed Type Prevnar 13 (PF) 0.5 ml IM X1 #1 ea 12/26/16 05/18/20 Rx Cannibus 1 drp DAILY 09/28/19 05/18/20 History hydrocodone-acetaminophen 1 tab PRN PRN 09/28/19 05/18/20 History polyethylene glycol 3350 [Miralax] 17 g PO DAILY PRN 09/28/19 05/18/20 History ascorbic acid (vitamin C) [Vitamin 7,000 mg PO DAILY 10/19/19 05/18/20 History C] dexamethasone 4 mg PO BID 10/19/19 05/18/20 History magnesium oxide 400 mg PO DAILY 10/19/19 05/18/20 History methadone 5 mg PO Q8H 10/19/19 05/18/20 History Curapro 750 mg DAILY 12/07/19 05/18/20 History Vitamin D3 4,000 units DAILY 12/07/19 05/18/20 History calcium-vits M7-B-Y2-minerals 2 tab PO BID 12/07/19 05/18/20 History [Bone Essentials] zinc 30 mg DAILY 01/20/20 04/17/20 History abiraterone 1,000 mg PO QAM #120 tab 02/14/20 05/18/20 Rx Pycnogenol 100 mg BID 04/18/20 05/18/20 History potassium chloride 40 meq PO DAILY 07/06/20 07/06/20 History torsemide 40 mg PO DAILY 07/06/20 07/06/20 History Allergies Allergy/AdvReac Type Severity Reaction Status Date / Time Penicillins [PENICILLINS] Allergy Severe ANAPHYLAXIS Verified 05/01/20 13:07 Latex, Natural Rubber AdvReac Mild Rash Verified 05/01/20 13:07 CONTRAST DYE Allergy Severe HYPOTENSION Uncoded 10/29/17 13:08 Exam Vital signs: Vital Signs Temp Pulse Resp BP Pulse Ox 07/06/20 09:54 97.3 F L 72 18 153/73 H 96 Intake and Output 07/05/20 07/06/20 07/06/20 23:59 07:59 15:59 Other: Weight 83.9 kg Patient Weight 07/06/20 23:59 Weight 83.9 kg - Constitutional positive no acute distress, positive obese, positive chronically ill appearing, positive cooperative - Routine HEENT Exam Head: Present: normocephalic, atraumatic Eye: Present: EOMI, PERRL, normal accommodation. Absent: conjunctival icterus - Routine Neck Exam Present: supple. Absent: lymphadenopathy, thyromegaly - Routine Chest/Breast/Axilla Exam Axillae: Absent: lymphadenopathy - Routine Respiratory Exam Present: Clear to auscultation bilaterally. Absent: wheezes - Routine Cardiovascular Exam Present: RRR, S1, S2. Absent: murmur, gallop - Routine Abdominal Exam Present: soft. Absent: tenderness, distended - Routine Extremities Exam Present: edema (3+) - Routine Neurological Exam Present: alert, oriented X3, CN II-XII intact. Absent: sensory deficit, motor deficit - Routine Psychiatric Exam Present: normal affect Results - Labs Laboratory Last Values WBC 6.7 X10^3/uL (4.5-11.0) 06/22/20 13:45 RBC 3.42 X10^6/uL (4.5-5.9) L 06/22/20 13:45 Hgb 9.3 g/dL (13.5-17.5) L 06/22/20 13:45 Hct 28.4 % (41-53) L 06/22/20 13:45 MCV 83.0 fL (80-100) 06/22/20 13:45 MCH 27.2 PG (26-34) 06/22/20 13:45 MCHC 32.7 % (30-36) 06/22/20 13:45 RDW 22.8 % (11.6-14.8) H 06/22/20 13:45 Plt Count 182 X10^3/uL (150-400) 06/22/20 13:45 Neut % (Auto) Not Reportable 06/22/20 13:45 Lymph % (Auto) Not Reportable 06/22/20 13:45 Dolores % (Auto) Not Reportable 06/22/20 13:45 Eos % (Auto) Not Reportable 06/22/20 13:45 Baso % (Auto) Not Reportable 06/22/20 13:45 Neut # (Auto) 9400 /uL (5548-3894) H 06/01/20 08:45 Lymph # (Auto) Not Reportable 06/22/20 13:45 Dolores # (Auto) Not Reportable 06/22/20 13:45 Eos # (Auto) 100 /uL (0-450) 06/01/20 08:45 Baso # (Auto) Not Reportable 06/22/20 13:45 Total Counted 100 06/22/20 13:45 Seg Neutrophils % 63.0 % (38-70) 06/22/20 13:45 Band Neutrophils % 10.0 % (3-7) H 06/22/20 13:45 Lymphocytes % (Manual) 12.0 % (25-45) L 06/22/20 13:45 Atypical Lymphs % 7.0 % (-0) H 06/22/20 13:45 Monocytes % (Manual) 7.0 % (2-11) 06/22/20 13:45 Metamyelocytes % 1.0 % (-0) H 06/22/20 13:45 Neutrophils # (Manual) 4891 /uL (5222-1231) 06/22/20 13:45 Nucleated RBCs 4 #/Diff (-0) H 06/22/20 13:45 RBC Morphology Not Reportable 06/22/20 13:45 Polychromasia 1+ H 06/22/20 13:45 Anisocytosis 2+ H 06/22/20 13:45 Sodium 137 mmol/L (137-145) 06/22/20 13:45 Potassium 4.0 mmol/L (3.4-5.1) 06/22/20 13:45 Chloride 103 mmol/L (98-107) 06/22/20 13:45 Carbon Dioxide 31 mmol/L (22-32) 06/22/20 13:45 BUN 24 mg/dL (9-20) H 06/22/20 13:45 Creatinine 0.40 mg/dL (0.66-1.25) L 06/22/20 13:45 Estimated GFR > 60.0 mL/min (>60) 06/22/20 13:45 BUN/Creatinine Ratio 60.0 (6-22) H 06/22/20 13:45 Glucose 135 mg/dL (80-110) H 06/22/20 13:45 Calcium 8.0 mg/dL (8.4-10.2) L 06/22/20 13:45 Total Bilirubin 0.4 mg/dL (0.2-1.3) 06/22/20 13:45 AST 27 IU/L (17-59) 06/22/20 13:45 ALT 22 IU/L (<50) 06/22/20 13:45 Alkaline Phosphatase 1011 U/L (38-126) H 06/22/20 13:45 Total Protein 6.8 g/dL (6.3-8.2) 06/22/20 13:45 Albumin 3.9 g/dL (3.5-5.0) 06/22/20 13:45 Globulin 2.9 g/dL (1.7-4.1) 06/22/20 13:45 Albumin/Globulin Ratio 1.3 (1.0-2.8) 06/22/20 13:45 Prostate Specific Ag 404 ng/mL (0.10-4.00) H 06/22/20 13:45 Testosterone Level 6.19 ng/dL (71.8-623) L 06/22/20 13:45 Assessment and Plan (1) Metastatic cancer to bone Overview: Seng is a 74 year old male with advanced prostate cancer with extensive bone metastasis diagnosed on 10/12/2019. He initially presented with rapidly progressive worsening whole body bone pain, weight loss and lower extremity muscle wasting in 06/2019. CT CAP scan on 09/28/2019 showed extensive sclerotic bone lesion affecting all visible bones as well as one left pelvic lymph node. PSA on 10/11/2019 was found to be 203.97 ng/ml. 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 He was started on Lupron 22.5 mg im q3m, 10/26/2019, and had taken Casodex 50 mg daily for 30 days to prevent flare. EBRT Zytega 1000 mg/d and prednisone 5 mg daily started on 03/06/2020 - Assessment: Today I spent at least 45 minutes [id number] with the patient and his . More than 50% of the time was spent counselling about disease status and treatment decisions. We talked about several different issues. First of all, the swelling, fatigue, bone pain and shortness of breath probably are more likely related to the progression of the underlying prostate cancer rather than from the side effects of Lupron, Xgeva or Zytiga. Patient initially would like to stop the Lupron and stop the Xgeva. I explained to the patient that even when patient develops castration resistance, we still recommend that patient continue on the Lupron, that is, androgen deprivation therapy. On top of that, we usually add more androgen targeting therapy, iZytiga is one of them. I think that without Lupron injection, his underlying prostate cancer probably will flare more rapidly. Next I reviewed the laboratory tests from about 1-2 weeks ago. It shows that the PSA level has plateaued and did not show for further rising trend even though it is still at a high level. The trend indicates that the androgen deprivation therapy is still effective to some extent. The patient's laboratory tests showed that the kidney function is completely within the normal range. Liver function is normal. So I think patient should consider seriously about active treatment including radium 2-[address] Sharma from [facility] also recommended. However patient said that he does not want to continue to go to the [facility] for the radium 2-3. That is off the table. As far as chemotherapy is concerned, patient is very much afraid of the side effects of the chemotherapy. In addition he understood that the chemotherapy is not a cure. It only prolongs the life. He cannot make any decision at this point during the current encounter. Today we also talked about the hospice care. Patient apparently is leaning towards hospice care. He said that the quality of time is more important than the length of time if he was to choose. But he again has not made up his decision yet. Eventually, I talked with them that we will continue the current treatment including Lupron, Xgeva, and Zytiga together with dexamethasone. I will bring him back in about 1 month for further discussion. Plan: Cont Lupron 22.5 mg im q12w Cont Zytiga 1000 mg daily Cont Dexamethaone 4 mg bid Cont Denosomab 120 mg subQ qM RTC in one month, CBC, CMP, PSA.
--- NOTE | 2020-07-06 10:46 | PC.NURSE ---
Pt is declining Lupron injection this month. pt wants to wait a month for injection.
[2020-07-06] MEDS: DENOSUMAB 120 MG/1.7 ML VIAL SUBCUT (11:07)
--- NOTE | 2020-07-06 11:08 | PC.NURSE ---
Pt. Ca was 8.0, Dr. Perez aware, will monitor his blood glucose
--- NOTE | 2020-07-06 11:16 | PHA.NOTE ---
Leuprolide & Denosumab treatment: 1. Per RN, patient declined Leuprolide treatment today. MD is ok'd with delaying Leuprolide for 1 month. 2. Reviewed patient's labs with Dr. Perez, patient's Ca+ level is trending downward, Ca+ = 8.0 (06/22). MD ok'd to proceed with Denosumab treatment today and will discuss with patient around his Calcium supplement.
--- NOTE | 2020-07-27 10:40 | PC.NURSE ---
Pt status: This RN spoke with pt over the phone. Pt reports edema is down about 20%. Reports no increase in SOB. Eating and drinking w/o issue. Reports pain is controlled with current regimen. Reports decrease in weight with edema improving. Pt reports contemplating hospice and plans on discussing this further with Dr. Perez at next week's appt. This RN updated Dr. Perez on phone conversation, no new orders received.
--- NOTE | 2020-08-03 09:39 | ONC.PN ---
PN -Subjective Interval history: ID/CC: 75-year-old gentleman with advanced prostate cancer with extensive bone metastasis. HPI: Seng Becker is a 75 year old male. He was referred by Dr. Domenico Roldan for evaluation of metastatic cancer to the bone of unknown primary. Seng used to be a very active man. He was in [place] in June of 2019 when he developed left hip pain. Initially he thought he could overcome by more exercise. He went for physical therapy. However the left hip pain has gotten progressively worse especially in ?wrong position?. The pain can be as severe as 9/10 in severity when it is in the wrong position. In addition patient has noticed significant muscle wasting of the lower extremities especially the left side compared to the right side. He gradually was having problems ambulating and had to use crutches all the time. Patient has lost about 18 lb since then. While in [place], patient had a MRI of the lumbar spine and the pelvis on 09/21/2019. The MRI showed diffusely heterogeneous marrow suspicious for diffuse osseous metastatic disease. Other possibilities would include multiple myeloma or myeloproliferative disorders. He flew back to [facility] and on September 23, [address] Domenico Roldan who referred the patient to our [facility] for further evaluation. Dr. Domenico Roldan prescribed hydrocodone 5/325 every 4 hours on as-needed basis for pain control. On 09/28/2019, patient underwent CT chest abdomen and pelvis. The scan showed diffuse, heterogeneous sclerotic intra-osseous lesions throughout the visualized skeleton compatible with osseous metastasis. No acute compression fractures were noted. No evidence of pathological fractures. It also showed prominent left pelvic side wall lymph node measuring approximately 1.1 cm in short axis dimension. On 09/29/2019, he developed extreme pain and had to lie down on mattress on floor and was not able to get up. He chose no further investigation or treatment. He then decided to get into hospice care ([facility] For pain control, he was started on methadone. After CT scan of 09/28/2019 became available, I called and discussed with Kelley Rubin about check serum PSA level. On 10/11/2019, patient underwent laboratory test that showed PSA 203.97 ng/ml. On 10/12/2019, patient was evaluated by Dr. Roldan for pain management. Patient has chose to revoke hospice care. At the time, he was taking methadone every 12 hours, hydrocodone for breakthrough pain together with dexamethasone. Patient said that this regimen works well for the pain. Patient also was evaluated by [facility]. They have received lots of information as far as prostate cancer treatment is concerned. He was started on Casodex 50 mg once a day for 30 days and on 10/26/2019 patient was started on Lupron injection 22.5 mg im. On 12/29/[address] Crawford agreed with the androgen deprivation therapy and hopefully rucaparib if the genetic testing for ZEFERINO positive. In addition, Dr. Machuca also discussed with the patient about possible radium 2-3 given the extensive bone metastasis without visceral metastasi On 11/09/2019, patient underwent bone scan at [facility] that showed extensive skeletal metastasis, through the axial and appendicular skeleton, with asymmetric greater involvement over the left femur compared to the right. The degree of isotope uptake in the bones was prominent, to the degree that no residual isotope was excreted through the urinary tract. On 01/18/2020, patient was evaluated by Dr. William Soliz. Dr. Soliz recommended a course of palliative radiation therapy directed at symptomatic bilateral hips/proximal femurs, with modification to include other sites depending on the appearance on treatment planning CT pelvic/femurs. Dr. William Soliz thought that because the patient has viable systemic treatment options, focused palliative external beam radiation therapy at this time was favored over systemic radionucleotide (radium 223) treatment. Patient has completed external beam radiotherapy He started Zytega on 03/06/2020) together with prednisone 5 mg daily. The patient underwent CT chest abdomen pelvis and bone scan on 05/15/2020. The CT scan showed extensive mixed blastic and lytic bone lesions consistent with widespread osseous metastasis. It also showed resolution of mildly enlarged left pelvic sidewall lymph node. A small fat containing right inguinal hernia was noted. The bone scan showed widespread osseous metastatic disease, with more conspicuous or new bilateral mid humeral lesions. Improved appearance and decreased uptake at the bilateral proximal femur since the previous study. There is also decreased tracer uptake and the acetabuli bilaterally. On 06/09/2020, he had a video visit with Jesus Davis of [facility]. Options including enzalutamide, radium-223, docetaxel, cabazitaxel and olaparib were discussed with the patient. Dr Sharma did not think that enzalutamide would be very useful as possible cross resistance with abiraterone. Given that the patient has bone metastasis only, Dr. Sharma recommended treatment with radium-223. Additionall, chemotherapy with docetaxel or cabazitaxel could be used and may lead to rapid response. Dr. Sharma would not recommend olaparib because patients with ZEFERINO mutation did not seem to benefit much in the PROfound trial. Interval History: Seng came in here today accompanied by his . Seng stopped Zytega about one week ago. He is now taking dexamethasone q6h (4mg, 2mg, 4mg, 2mg ) a day and methadone. He is now using Fentanyl 125 mcg every 3 days. He is still having spiking of pain and has to take hydrocodone to get it under control. He has decided not to continue Lupron. But he would like to continue Xgeva injection for the bone health. Recently, patient has noticed bone chips coming out from the jaw bone. He has an appointment with Dr. Erazo this afternoon. Treatment summary Lupron 22.5 mg im q3m, 10/26/2019 - Casodex 50 mg daily x 30 days, 10/26/2019 Zytega 1000 mg daily 03/06/2020 - - Patient Self-Reported Symptoms SR Constitution: Weight loss/gain SR eye issues: Vision changes SR ears, nose, mouth, throat issues: Hoarseness SR respiratory issues: Shortness of breath SR Cardiovascular issues: Shortness of breath with activity or lying flat, Extreme swelling SR Skin issues: Skin color changes SR Gastrointestinal issues: Constipation, Heartburn SR Genitourinary issues: Frequent urination SR Musculoskeletal issues: Joint pain or swelling, Muscle weakness, Muscle pain or cramps, Back or neck pain, Cold hands or feet, Difficulty walking SR Neuro issues: Tremors or shaking SR Endocrine issues: Hot flashes - Additional ROS All systems PM: reviewed and no additional remarkable complaints except as stated Home Medications and Allergies Home Medications Medication Instructions Recorded Confirmed Type Prevnar 13 (PF) 0.5 ml IM X1 #1 ea 12/26/16 05/18/20 Rx hydrocodone-acetaminophen 1 tab PRN PRN 09/28/19 05/18/20 History polyethylene glycol 3350 [Miralax] 17 g PO DAILY PRN 09/28/19 05/18/20 History ascorbic acid (vitamin C) [Vitamin 7,000 mg PO DAILY 10/19/19 05/18/20 History C] dexamethasone 4 mg PO BID 10/19/19 05/18/20 History magnesium oxide 400 mg PO DAILY 10/19/19 05/18/20 History methadone 5 mg PO Q8H 10/19/19 05/18/20 History Curapro 750 mg DAILY 12/07/19 05/18/20 History Vitamin D3 4,000 units DAILY 12/07/19 05/18/20 History calcium-vits K7-X-E6-minerals 2 tab PO BID 12/07/19 05/18/20 History [Bone Essentials] zinc 30 mg DAILY 01/20/20 04/17/20 History Pycnogenol 100 mg BID 04/18/20 05/18/20 History potassium chloride 40 meq PO DAILY 07/06/20 07/06/20 History torsemide 40 mg PO DAILY 07/06/20 07/06/20 History fentanyl 1 patch TRANSDERMAL Q72H 08/03/20 08/03/20 History Allergies Allergy/AdvReac Type Severity Reaction Status Date / Time Penicillins [PENICILLINS] Allergy Severe ANAPHYLAXIS Verified 05/01/20 13:07 Latex, Natural Rubber AdvReac Mild Rash Verified 05/01/20 13:07 CONTRAST DYE Allergy Severe HYPOTENSION Uncoded 10/29/17 13:08 Exam Vital signs: 08/03/20 10:13 Last Vital Signs Temp 98 F 08/03/20 09:45 Pulse 71 08/03/20 09:45 Resp 18 08/03/20 09:45 BP 136/70 08/03/20 09:45 Pulse Ox 98 08/03/20 09:45 Narrative: ECOG 1 Gen: WD, well nourished, NAD, pleasant and cooperative. Accompanied by his . HEENT: NCAT, EOMI, PERRLA, anicteric sclera. Respiratory: no use of accessary respiratory muscle. Neurological: AOx3, CN II-XII grossly intact. No focal motor or sensory deficit. Psychiatric: Normal affect, appropriate mood, no depression, no anxiety. Results - Labs Laboratory Last Values WBC 6.7 X10^3/uL (4.5-11.0) 06/22/20 13:45 RBC 3.42 X10^6/uL (4.5-5.9) L 06/22/20 13:45 Hgb 9.3 g/dL (13.5-17.5) L 06/22/20 13:45 Hct 28.4 % (41-53) L 06/22/20 13:45 MCV 83.0 fL (80-100) 06/22/20 13:45 MCH 27.2 PG (26-34) 06/22/20 13:45 MCHC 32.7 % (30-36) 06/22/20 13:45 RDW 22.8 % (11.6-14.8) H 06/22/20 13:45 Plt Count 182 X10^3/uL (150-400) 06/22/20 13:45 Neut % (Auto) Not Reportable 06/22/20 13:45 Lymph % (Auto) Not Reportable 06/22/20 13:45 Tama % (Auto) Not Reportable 06/22/20 13:45 Eos % (Auto) Not Reportable 06/22/20 13:45 Baso % (Auto) Not Reportable 06/22/20 13:45 Neut # (Auto) 9400 /uL (6481-9039) H 06/01/20 08:45 Lymph # (Auto) Not Reportable 06/22/20 13:45 Tama # (Auto) Not Reportable 06/22/20 13:45 Eos # (Auto) 100 /uL (0-450) 06/01/20 08:45 Baso # (Auto) Not Reportable 06/22/20 13:45 Total Counted 100 06/22/20 13:45 Seg Neutrophils % 63.0 % (38-70) 06/22/20 13:45 Band Neutrophils % 10.0 % (3-7) H 06/22/20 13:45 Lymphocytes % (Manual) 12.0 % (25-45) L 06/22/20 13:45 Atypical Lymphs % 7.0 % (-0) H 06/22/20 13:45 Monocytes % (Manual) 7.0 % (2-11) 06/22/20 13:45 Metamyelocytes % 1.0 % (-0) H 06/22/20 13:45 Neutrophils # (Manual) 4891 /uL (3629-1120) 06/22/20 13:45 Nucleated RBCs 4 #/Diff (-0) H 06/22/20 13:45 RBC Morphology Not Reportable 06/22/20 13:45 Polychromasia 1+ H 06/22/20 13:45 Anisocytosis 2+ H 06/22/20 13:45 Sodium 137 mmol/L (137-145) 06/22/20 13:45 Potassium 4.0 mmol/L (3.4-5.1) 06/22/20 13:45 Chloride 103 mmol/L (98-107) 06/22/20 13:45 Carbon Dioxide 31 mmol/L (22-32) 06/22/20 13:45 BUN 24 mg/dL (9-20) H 06/22/20 13:45 Creatinine 0.40 mg/dL (0.66-1.25) L 06/22/20 13:45 Estimated GFR > 60.0 mL/min (>60) 06/22/20 13:45 BUN/Creatinine Ratio 60.0 (6-22) H 06/22/20 13:45 Glucose 135 mg/dL (80-110) H 06/22/20 13:45 Calcium 8.0 mg/dL (8.4-10.2) L 06/22/20 13:45 Total Bilirubin 0.4 mg/dL (0.2-1.3) 06/22/20 13:45 AST 27 IU/L (17-59) 06/22/20 13:45 ALT 22 IU/L (<50) 06/22/20 13:45 Alkaline Phosphatase 1011 U/L (38-126) H 06/22/20 13:45 Total Protein 6.8 g/dL (6.3-8.2) 06/22/20 13:45 Albumin 3.9 g/dL (3.5-5.0) 06/22/20 13:45 Globulin 2.9 g/dL (1.7-4.1) 06/22/20 13:45 Albumin/Globulin Ratio 1.3 (1.0-2.8) 06/22/20 13:45 Prostate Specific Ag 404 ng/mL (0.10-4.00) H 06/22/20 13:45 Testosterone Level 6.19 ng/dL (71.8-623) L 06/22/20 13:45 Assessment and Plan (1) Metastatic cancer to bone Overview: Seng is a 74 year old male with advanced prostate cancer with extensive bone metastasis diagnosed on 10/12/2019. He initially presented with rapidly progressive worsening whole body bone pain, weight loss and lower extremity muscle wasting in 06/2019. CT CAP scan on 09/28/2019 showed extensive sclerotic bone lesion affecting all visible bones as well as one left pelvic lymph node. PSA on 10/11/2019 was found to be 203.97 ng/ml. 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 He was started on Lupron 22.5 mg im q3m, 10/26/2019, and had taken Casodex 50 mg daily for 30 days to prevent flare. EBRT Zytega 1000 mg/d and prednisone 5 mg daily started on 03/06/2020 -07/27/2020 Assessment: Today, we had a long discussion again regarding his current situation. Patient said that his goal is quality of time and comfort. Currently he is taking pain medications including fentanyl, methadone, dexamethasone and hydrocodone. Still, he is experiencing breakthrough spiking pain requiring more medications especially hydrocodone. Patient himself has stopped Zytiga and also decided not to continue Lupron. 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 I have addressed this question before and I told him that androgen deprivation therapy is the backbone of all the other treatment. Even in patients with castration refractory prostate cancer, the guidelines recommend patient continue on androgen deprivation therapy. As far as the bone medication Xgeva is concerned, he is interested in continuing the Xgeva injection. However, patient has teeth problems and he noticed bone chips coming out every time. He is going to see Dr. Erazo this afternoon. I encouraged the patient to talk with Dr. Erazo and to see if the bone chips from the jaw bone are actually related to the use of Xgeva. Patient voiced understanding. I talked with the patient and his that their goal is in perfect alignment with the goal of hospice. I recommended referring him back to hospice. Patient said that he was very much impressed by the quality of hospice care here when he first came to [place]. He is willing to go to hospice, but he is also interested in continuing Xgeva. He understands that once in hospice, probably he is not going to be able to continue the Xgeva. Patient said that he is going to see what Dr. Erazo will say about the bone of the jaw. If it is not related to Xgeva, he would like to continue follow-up [facility] for injection. Otherwise he is ok to proceed to hospice care. Plan: Stop Lupron Stop Zytiga Cont Dexamethaone 4 mg bid Cont Denosomab 120 mg subQ qM RTC in one month, lab per protocol
[2020-08-03 09:45] VITALS: BP 136/70; PULSE 71; RESP 18; TEMP 36.6; O2SAT 98
--- NOTE | 2020-08-07 11:30 | ONC.SCHED ---
Per note out from Dr. Perez requesting orders: He is going to call after dentist visit! Maybe hospice!
--- NOTE | 2020-08-08 15:30 | PC.NURSE ---
PATIENT'S KEREN CALLED TO REPORT THAT PER THEIR ORAL SURGEON PATIENT SHOULD STOP XGEVA FOR NOW AND WILL SEE HIM AGAIN IN A MONTH TO REEVALUATE. DUE TO INCREASINGLY DIFFICULT TO MANAGE PAIN THEY HAVE DECIDED FOR PATIENT TO GO ON HOSPICE AND WILL CONTACT US AGAIN IF THEY WOULD DECIDE OTHERWISE. DR SEVERINO INFORMED PER THIS NOTE. CHAIR MENDER WAS INFORMED.
== END ==
PROVIDERS: PCP Family Medicine; Referring Provider Family Medicine; Visit Provider Internal Medicine Hematology & Oncology
DX: C61 Malignant neoplasm of prostate (principal); C79.51 Secondary malignant neoplasm of bone
CPT/HCPCS: 36415; 71250; 74176; 80053; 82306; 82390; 82525; 82784; 84153; 84155; 84165; 84403; 84630; 85007; 85025; 85651; 86140; 86334; 96372; 96402; 99204; 99214; 99215; J0897; J9217; Q9967